=== PATIENT | female | born 1950 | race Caucasian/White ===

== ENCOUNTER → 2018-03-09 15:15 | Outpatient (CLI) | payer MEDICARE, SELFPAY ==
--- NOTE | 2018-03-09 15:27 | RAD_ITS ---
STUDY: X-RAY - RIGHT HAND REASON FOR EXAM: Female, 67 years old. Pain without known injury. History of rheumatoid arthritis. TECHNIQUE: 3 view(s) of the hand. COMPARISON: None. FINDINGS: Normal radiocarpal articulation. Normal distal radioulnar joint. There is diffuse demineralization of the carpal bones. Normal carpal articulations There is minimal degenerative arthrosis of the carpometacarpal (CMC) articulation of the thumb. Normal second through fifth carpometacarpal joints. Normal metacarpi. Normal metacarpophalangeal joint of the thumb. Normal interphalangeal joint of the thumb. Normal proximal and distal phalanges of the thumb. Normal metacarpophalangeal joints of the second through fifth fingers. Normal proximal and distal interphalangeal joints of the second through fifth fingers. Normal phalanges of the second through fifth fingers. There is soft tissue swelling over the dorsum of the metacarpophalangeal joints and along the palmar aspect of the hand. RAD/Hand Min 3 Views IMPRESSION: 1. Osteopenia and minimal degenerative changes. No fracture or dislocation. 2. Soft tissue prominence. Electronically Signed: Gamaliel Rodriguez DO at 20:26 EDT Tel [phone], Service support ,
--- NOTE | 2018-03-09 15:27 | RAD_ITS ---
STUDY: X-RAY - LEFT HAND REASON FOR EXAM: Female, 67 years old. History of rheumatoid arthritis. Pain without known injury. TECHNIQUE: 3 view(s) of the hand. COMPARISON: None. FINDINGS: Normal radiocarpal articulation. Normal distal radioulnar joint. There is diffuse demineralization of the carpal bones. Normal carpal articulations There is degenerative arthrosis of the carpometacarpal (CMC) articulation of the thumb. Normal second through fifth carpometacarpal joints. Normal metacarpi. Normal metacarpophalangeal joint of the thumb. There is degenerative arthrosis of the interphalangeal joint of the thumb with articular joint space narrowing. Normal proximal and distal phalanges of the thumb. Normal metacarpophalangeal joints of the second through fifth fingers. Normal proximal and distal interphalangeal joints of the second through fifth fingers. Normal phalanges of the second through fifth fingers. There is soft tissue prominence over the dorsum of the metacarpophalangeal joints. RAD/Hand Min 3 Views IMPRESSION: 1. Osteopenia and degenerative changes without acute fracture or dislocation. 2. Soft tissue prominence over the metacarpophalangeal joints. Electronically Signed: Gamaliel Rodriguez DO at 20:27 EDT Tel [phone], Service support ,
--- NOTE | 2018-03-09 15:27 | RAD_ITS ---
STUDY: X-RAY - RIGHT KNEE REASON FOR EXAM: Female, 67 years old. Bilateral knee pain without injury. History of rheumatoid arthritis. TECHNIQUE: 4 view(s) of the knee. COMPARISON: None. FINDINGS: Normal visualized distal femur. Normal visualized proximal tibia and fibula. Normal proximal tibiofibular articulation. There is no acute fracture, dislocation or destructive osseous pathology. There is moderate degenerative arthrosis of the medial femorotibial compartment with moderate joint space narrowing. There is mild degenerative arthrosis of the lateral femorotibial compartment. There is moderate degenerative arthrosis of the patellofemoral articulation. There is no demonstrated joint effusion. The soft tissue structures are unremarkable. RAD/Knee 4 or More Views IMPRESSION: Degenerative arthrosis. Electronically Signed: Gamaliel Rodriguez DO at 20:32 EDT Tel [phone], Service support ,
--- NOTE | 2018-03-09 15:27 | RAD_ITS ---
STUDY: X-RAY - LEFT KNEE REASON FOR EXAM: Female, 67 years old. Knee pain without injury. Rheumatoid arthritis. TECHNIQUE: 3 view(s) of the knee. COMPARISON: None. FINDINGS: Normal visualized distal femur. Normal visualized proximal tibia and fibula. Normal proximal tibiofibular articulation. There is no acute fracture, dislocation or destructive osseous pathology. There is mild degenerative arthrosis of the medial femorotibial compartment. Normal lateral femorotibial compartment. Normal patellofemoral articulation. There is no demonstrated joint effusion. The soft tissue structures are unremarkable. RAD/Knee 4 or More Views IMPRESSION: Degenerative arthrosis. Electronically Signed: Gamaliel Rodriguez DO at 20:31 EDT Tel [phone], Service support ,
[2018-03-09 15:39] LABS: Bacteria 0 SEEN /hpf (None Seen); Mucous, Urine 0 SEEN /hpf (<or=2+); Red Blood Cells-Urine 0 SEEN /hpf (0-5); Squamous Epithelial Cells - UA 0 SEEN /hpf (5-10); White Blood Cells 0 SEEN /hpf (0-5)
--- NOTE | 2018-03-09 16:00 | RAD_ITS ---
STUDY: X-RAY CHEST REASON FOR EXAM: Female, 67 years old. History of COPD. TECHNIQUE: PA and lateral views of the chest. COMPARISON: None. FINDINGS: The lungs are clear and expanded. There is no demonstrated pleural abnormality. Normal size heart. Normal mediastinum and salena. Normal visualized pulmonary arteries. Normal visualized aortic arch and descending thoracic aorta. There are diffuse degenerative changes of the visualized thoracic spine. Normal visualized ribs, clavicles, and shoulders. There is no demonstrated abnormality of the visualized soft tissue structures of the upper abdomen. RAD/Chest PA and Lateral IMPRESSION: No acute cardiopulmonary process. Electronically Signed: Emmanuelle Rodríguez MD at 19:35 EDT Tel , Service support ,
[2018-03-09 17:49] LABS: Absolute Lymphocyte Count 1.35 X10^3/ul (0.83-4.51); Absolute Neutrophil Count 4.6 X10^3/uL (2.0-7.7); Basophil# 0.04 X10^3/uL; Basophil% 0.6 % (0-1); Eosinophil# 0.28 X10^3/uL; Eosinophils% 4.1 % (0-5); Hematocrit 39.1 % (37-47); Hemoglobin 12.8 g/dl (12.0-15.0); Lymphocyte # 1.35 X10^3/ul (4.0); Lymphocyte % 19.5 % (19-41); Mean Corp Hgb Conc 32.7 g/gl (32-36); Mean Corpuscular Hgb 28.6 pg (27.0-32.0); Mean Corpuscular Volume 87.5 fL (81-99); Mean Platelet Vol. 10.8 fl (6.2-12.0); Monocyte# 0.58 X10^3/uL; Monocyte% 8.4 % (0-10); Neutrophil # 4.64 X10^3/uL (2.7-7.7); Neutrophil % 67.1 % (47-70); Platelet Count 212 K/mm3 (150-450); RBC Distribution Width CV 13.8 % (11.6-14.6); RBC Distribution Width SD 43.6 fl (35.1-43.9); Red Blood Count 4.47 M/mm3 (4.2-5.4); White Blood Count 6.9 K/mm3 (4.4-11.0)
[2018-03-09 17:53] LABS: POSITIVE COUNT NO; POSITIVE DIFFERENTIAL NO; POSITIVE MORPHOLOGY NO
[2018-03-09 18:02] LABS: Erythrocyte Sedimentation Rate 28 mm/hr (0-30)
[2018-03-09 19:13] LABS: ALB/GLOB Ratio 0.9 RATIO (0.9-2.4); AST(SGOT) 17 U/L (15-37); Alanine Aminotransfer ALT/SGPT 26 U/L (13-56); Albumin, Serum 3.5 g/dL (3.2-5.0); Alkaline Phosphatase 69 U/L (45-117); Anion Gap 6 (5-15); BUN 11 mg/dL (7-18); BUN/Creat Ratio 13.7 RATIO (10-20); Chloride 105 mmol/L (98-107); Cholesterol 169 mg/dL (200); EST Glomerular Filtration Rate 76 mL/min (>60); Est Glom Filt Rate - Afr Amer 92 mL/min (>60); Globulin 4.1 g/dL (2.2-4.2); Glucose 88 mg/dL (74-106); High Density Lipoprotein 39 mg/dL; Protein, Total 7.6 g/dL (6.4-8.2); Sodium Level 140 mmol/L (136-145); T4 Free Direct 1.16 ng/dL (0.76-1.46); Thyroid Stim Hormone (TSH) 3.41 uIU/mL (0.358-3.74); Triglycerides 192 mg/dL; Very Low Density Lipoprotein 38 mg/dL (5-40)
[2018-03-10 09:52] LABS: Vitamin B12 372 pg/mL (211-911)
[2018-03-10 11:33] LABS: Color, Urine Yellow (Yellow); Glucose, Dipstick Normal (Normal); Ketone-Dipstick Negative (Negative); Leukocyte Esterase-Dipstick Negative /ul (Negative); Nitrite-Dipstick Negative (Negative); Occult Blood-Urine Negative /ul (Negative); Protein-Dipstick Negative (Negative); Urine Bilirubin Dipstick Negative (Negative); Urine Clarity Clear (Clear); Urine Urobilinogen Normal (Normal)
[2018-03-14 08:25] LABS: Anti-Thyroglobulin AB < 1.0 IU/mL (0.0-0.9); Thyroglobulin, Serum Qt. 22.4 ng/mL (1.5-38.5); Thyroid Peroxidase AB 14 IU/mL (0-34); Vitamin B1, Thiamine 59.3 nmol/L (66.5-200.0)
[2018-03-14 08:55] LABS: ANTINUCLEAR ANTIBODIES DIRECT Negative (Negative)
== END ==
PROVIDERS: Family Provider Family Medicine; PCP Family Medicine; Visit Provider Family Medicine
DX: M06.9 Rheumatoid arthritis, unspecified (principal); I10 Essential (primary) hypertension; G62.9 Polyneuropathy, unspecified; E03.9 Hypothyroidism, unspecified
CPT/HCPCS: 36415; 71046; 73130; 73564; 80053; 80061; 81001; 82607; 84425; 84432; 84439; 84443; 85025; 85652; 86038; 86376; 86431; 86800

== ENCOUNTER → 2018-04-14 08:16 | Outpatient (CLI) | payer MEDICARE, SELFPAY ==
--- NOTE | 2018-04-17 10:07 | PFT ---
INTRODUCTION: The patient is a 67-year-old female that presents for pulmonary function testing secondary to a diagnosis of COPD. Respiratory therapy reports good patient effort. Bronchodilators were used during testing. INTERPRETATION: Forced expiration spirometry demonstrates no evidence of a large airways obstructive ventilatory defect. There was no significant response to aerosolized bronchodilators. Spirograms are of good quality and plateau normally. The respiratory flow volume loop appears normal. Body plethysmography was performed and reveals a decreased TLC to 2.7 L, 74% predicted, indicative of a mild restrictive ventilatory defect. The remainder of the lung volumes are symmetrically reduced. Diffusing capacity by single breath CO is moderately reduced at 58% of predicted. IMPRESSION: These pulmonary function studies demonstrate the presence of a mild restrictive ventilatory defect with a proportional reduction in diffusing capacity. There are no previous pulmonary function studies available for comparison.
== END ==
LOC: PSN 08:17
PROVIDERS: Family Provider Family Medicine; PCP Family Medicine; Visit Provider Family Medicine
DX: J44.9 Chronic obstructive pulmonary disease, unspecified (principal)
CPT/HCPCS: 94060; 94726; 94729

== ENCOUNTER → 2018-06-20 14:01 | Outpatient (CLI) | payer MEDICARE, SELFPAY ==
--- NOTE | 2018-06-20 14:10 | ECHOCS_ITS ---
Reason For Study: DYSPNEA Procedure This was a 2D Doppler, Color Flow transthoracic echocardiogram. The study was technically difficult. Exam performed in department. Left Ventricle Normal LV size. The estimated ejection fraction is 55 %. No regional wall motion abnormalities noted. Right Ventricle Normal RV size. Normal systolic function. Atria The left atrium is mildly enlarged. Normal right atrium. Mitral Valve Normal mitral valve. Tricuspid Valve The tricuspid valve is not well visualized. Aortic Valve The aortic valve is not well visualized. Great Vessels Normal aortic root. Pericardium/Pleural No pericardial effusion. Medication 22 gauge I.V. with prn adaptor inserted into left arm. Diluted definity 4.5ml given slow IV push to enhance endocardial definition. MMode/2D Measurements & Calculations LVIDd: 4.2 cm IVSd: 1.1 cm LVOT diam: 2.0 cm LVIDs: 3.0 cm LVPWd: 1.2 cm LVOT area: 3.3 cm2 FS: 27.0 % Ao root diam: 3.2 cm LAV(MOD-bp): 57.5 ml LVAd ap4: 32.9 cm2 LA dimension: 4.6 cm LAV(MOD-bp) Indexed: 32.6 ml/m2 EDV(MOD-sp4): 118.6 ml LAV(MOD-sp2): 49.6 ml EDV(sp4-el): 127.5 ml LAV(MOD-sp4): 58.3 ml LVAs ap4: 21.2 cm2 ESV(MOD-sp4): 53.6 ml ESV(sp4-el): 59.4 ml EF(MOD-sp4): 54.8 % EF(sp4-el): 53.4 % SV(MOD-sp4): 65.1 ml SV(sp4-el): 68.2 ml LA A4 area: 21.4 cm2 LA dimension(2D): 4.6 cm Time Measurements MV dec time: 0.18 sec Doppler Measurements & Calculations MV E max venkata: 92.2 cm/sec Lat Peak E' Venkata: 13.3 cm/sec Med Peak E' Venkata: 6.6 cm/sec MV A max venkata: 83.5 cm/sec E/E' lat: 7.0 E/E' med: 14.0 MV E/A: 1.1 Ao V2 max: 143.4 cm/sec LV V1 max: 99.2 cm/sec PA V2 max: 97.1 cm/sec Ao max P.2 mmHg LV V1 max P.9 mmHg ANDREW(V,D): 2.3 cm2 TR max venkata: 287.7 cm/sec TR max P.3 mmHg Interpretation Summary Normal LV size. The estimated ejection fraction is 55 %. No regional wall motion abnormalities noted. Contrast injection was performed. The study was technically limited. The study was technically difficult. Ordering Physician: Adilson Field Referring Physician: Adilson Field Performed By: Tasha Lopez RDCS
--- NOTE | 2018-06-20 15:28 | RAD_ITS ---
STUDY: X-RAY CHEST REASON FOR EXAM: Female, 67 years old. Increased SOB. TECHNIQUE: PA and lateral views. COMPARISON: 03/09/2018. FINDINGS: The lungs are clear and expanded. There is no demonstrated pleural abnormality. There is mild cardiac enlargement. Normal mediastinum and salena. Normal visualized pulmonary arteries. Normal visualized aortic arch and descending thoracic aorta. Normal visualized thoracic spine. Normal visualized ribs, clavicles, and shoulders. There is no demonstrated abnormality of the visualized soft tissue structures of the upper abdomen. RAD/Chest PA and Lateral IMPRESSION: Normal x-ray examination of the chest. Electronically Signed: Mili Bueno MD at 0:00 EST Tel , Service support ,
== END ==
PROVIDERS: Family Provider Family Medicine; PCP Family Medicine; Referring Provider Internal Medicine Pulmonary Disease; Visit Provider Internal Medicine Pulmonary Disease
DX: R06.00 Dyspnea, unspecified (principal)
CPT/HCPCS: 71046; 93306; Q9957; A4216; C8929

== ENCOUNTER → 2018-06-23 12:06 | Outpatient (CLI) | payer MEDICARE, SELFPAY ==
[2018-06-23 14:21] LABS: Absolute Lymphocyte Count 1.22 X10^3/ul (0.83-4.51); Absolute Neutrophil Count 5.6 X10^3/uL (2.0-7.7); Basophil# 0.04 X10^3/uL; Basophil% 0.5 % (0-1); Eosinophil# 0.29 X10^3/uL; Eosinophils% 3.7 % (0-5); Hematocrit 40.9 % (37-47); Hemoglobin 13.2 g/dl (12.0-15.0); Lymphocyte # 1.22 X10^3/ul (4.0); Lymphocyte % 15.6 % (19-41); Mean Corp Hgb Conc 32.3 g/gl (32-36); Mean Corpuscular Hgb 28.8 pg (27.0-32.0); Mean Corpuscular Volume 89.3 fL (81-99); Mean Platelet Vol. 11.1 fl (6.2-12.0); Monocyte# 0.67 X10^3/uL; Monocyte% 8.6 % (0-10); Neutrophil # 5.59 X10^3/uL (2.7-7.7); Neutrophil % 71.3 % (47-70); Platelet Count 201 K/mm3 (150-450); RBC Distribution Width CV 14.5 % (11.6-14.6); RBC Distribution Width SD 47.1 fl (35.1-43.9); Red Blood Count 4.58 M/mm3 (4.2-5.4); White Blood Count 7.8 K/mm3 (4.4-11.0)
[2018-06-23 14:26] LABS: POSITIVE COUNT NO; POSITIVE DIFFERENTIAL NO; POSITIVE MORPHOLOGY NO
[2018-06-23 14:36] LABS: ALB/GLOB Ratio 0.9 RATIO (0.9-2.4); AST(SGOT) 16 U/L (15-37); Alanine Aminotransfer ALT/SGPT 25 U/L (13-56); Albumin, Serum 3.3 g/dL (3.2-5.0); Alkaline Phosphatase 70 U/L (45-117); Anion Gap 6 (5-15); BUN 10 mg/dL (7-18); BUN/Creat Ratio 12.6 RATIO (10-20); Calcium,Total 9.1 mg/dL (8.5-10.1); Chloride 103 mmol/L (98-107); Cholesterol 195 mg/dL (200); Creatinine, Serum 0.79 mg/dL (0.55-1.02); EST Glomerular Filtration Rate 77 mL/min (>60); Est Glom Filt Rate - Afr Amer 93 mL/min (>60); Globulin 3.8 g/dL (2.2-4.2); Glucose 74 mg/dL (74-106); High Density Lipoprotein 43 mg/dL; Protein, Total 7.1 g/dL (6.4-8.2); Sodium Level 139 mmol/L (136-145); Thyroid Stim Hormone (TSH) 0.95 uIU/mL (0.358-3.74); Triglycerides 166 mg/dL; Very Low Density Lipoprotein 33 mg/dL (5-40)
[2018-06-29 08:11] LABS: Vitamin B1, Thiamine 312.2 nmol/L (66.5-200.0)
== END ==
PROVIDERS: Family Provider Family Medicine; PCP Family Medicine; Referring Provider Family Medicine; Visit Provider Family Medicine
DX: I10 Essential (primary) hypertension (principal)
CPT/HCPCS: 36415; 80053; 80061; 84425; 84443; 85025

== ENCOUNTER 2020-10-23 08:51 | Outpatient (RCR) | payer MEDICARE, SELFPAY ==
[2020-10-23] MEDS: COVID-19 VACC, MRNA(PFIZER)/PF 30 MCG/0.3 ML SYRINGE IM (14:21)
[2020-11-13] MEDS: COVID-19 VACC, MRNA(PFIZER)/PF 30 MCG/0.3 ML SYRINGE IM (14:24)
== END 2021-01-20 23:59 ==
LOC: IMMUN 08:51
PROVIDERS: PCP Student in an Organized Health Care Education/Training Program; Visit Provider Family Medicine
DX: Z23 Encounter for immunization (principal)
CPT/HCPCS: 0001A; 0002A; 91300

== ENCOUNTER → 2022-08-30 | Outpatient (CLI) | payer MEDICARE, SELFPAY | END | disposition home or self-care (01) | LOC: SL 20:55 | PROVIDERS: PCP Student in an Organized Health Care Education/Training Program; Visit Provider Student in an Organized Health Care Education/Training Program | DX: G47.33 Obstructive sleep apnea (adult) (pediatric) (principal) | CPT/HCPCS: 95811 ==

== ENCOUNTER → 2022-09-21 | Outpatient (CLI) | payer MEDICARE, SELFPAY | END | disposition home or self-care (01) | LOC: SL 13:47 | PROVIDERS: PCP Student in an Organized Health Care Education/Training Program; Visit Provider Student in an Organized Health Care Education/Training Program | DX: Z00.00 Encounter for general adult medical examination without abnormal findings (principal) ==

== ENCOUNTER → 2025-05-27 | Outpatient (CLI) | payer MEDICARE, SELFPAY ==
[2025-05-27 17:51] LABS: Hematocrit 38.2 % (37-47); Hemoglobin 12.3 g/dL (12.0-15.0); Mean Corp Hgb Conc 32.2 g/dL (32-36); Mean Corpuscular Volume 92.5 fL (81-99); Mean Platelet Vol. 12.1 fl (6.2-12.0); Platelet Count 158 K/mm3 (150-450); RBC Distribution Width CV 14.6 % (11.6-14.6); RBC Distribution Width SD 49.1 fl (35.1-43.9); Red Blood Count 4.13 M/mm3 (4.2-5.4); White Blood Count 8.0 K/mm3 (4.4-11.0)
[2025-05-27 18:08] LABS: AST(SGOT) 22 U/L (<=31); Alanine Aminotransfer ALT/SGPT 35 U/L (<=34); Albumin, Serum 3.7 g/dL (3.4-4.8); Alkaline Phosphatase 62 U/L (35-104); Bilirubin, Direct 0.17 mg/dL (0.00-0.30); Globulin 2.8 g/dL (2.2-4.2); Pro- Brain NATRIURETIC PEPTIDE 86 pg/mL (<=900)
[2025-05-28 11:59] LABS: Anion Gap 12 (5-15); BUN 21 mg/dL (4-19); BUN/Creat Ratio 17.7 RATIO (10-20); Calcium,Total 9.4 mg/dL (7.6-11.0); Carbon Dioxide 28.5 mmol/L (21.0-32.0); Chloride 99 mmol/L (98-108); Glucose 161 mg/dL (70-99); Potassium 3.8 mmol/L (3.3-5.1)
== END | disposition home or self-care (01) ==
LOC: HHLAB 15:59
PROVIDERS: PCP Student in an Organized Health Care Education/Training Program; Visit Provider Student in an Organized Health Care Education/Training Program
DX: N17.0 Acute kidney failure with tubular necrosis (principal)
CPT/HCPCS: 80048; 80076; 83880; 84100; 85027

== ENCOUNTER 2025-06-15 11:47 | Inpatient (IN) | payer MEDICARE, SELFPAY ==
[2025-06-15] VITALS (48 sets, daily range): BP systolic 50–137; BP diastolic 20–120; PULSE 54–120; RESP 12–34; TEMP 35.6–36.4; O2SAT 68–100; BMI 56.6
--- NOTE | 2025-06-15 12:07 | ED.VIS.DYS ---
HPI <Dr. Mike Tamez MD - Last Filed: 06/15/25 16:32> History of Present Illness Chief Complaint: Shortness of Breath Informant: patient Onset/Context/Timing Onset: Today and Yesterday Context: gradual Timing: Continuous Current Severity: Moderate Worsened by: Nothing Relieved by: Nothing Associated Symptoms cough Chest Pain: Positive for None Narrative Narrative: 74-year-old female history of recent admission to [facility] for pneumonia, CHF, COPD. Also has a history of A-fib on Eliquis and has a DVT in her leg. States that she was just discharged in the hospital she said we were told by home health care might have been this past Tuesday. She has become more short of breath. She is chronically on 2 L at home has been increased to 3 and she is post to wear it all the time and states she primarily wears it at night. She denies any chest pain. She denies any hemoptysis. She does have a nonproductive cough. PE Risk Factors: Positive for Prior DVT or PE and Recent immobilization; Negative for Cancer, OCP + Smoking + > 35, Recent surgery or Recent travel Prior similar symptoms: Yes Recent Illness/Hospitalization: Yes [facility] <Dr. Mike Tamez MD - Last Filed: 06/15/25 16:32> [facility] Medical History Blood clot in leg COPD (chronic obstructive pulmonary disease) Afib Home Medications ?Medication ?Instructions ?Recorded ?Last Taken ?Type BIPAP -Bilevel Positive Airway Pulmonary Information 06/15/25 06/15/25 History Pressure ([facility] INFORMATIONAL USE ONLY) OXYGEN - Supplemental ([facility] Pulmonary Information 06/15/25 06/15/25 History INFORMATIONAL USE ONLY) albuterol sulfate 2.5 mg/3 mL mg COPD 06/15/25 Unknown History (0.083 %) solution for nebulization apixaban 5 mg tablet (Eliquis) 5 mg PO BID AFIB 06/15/25 Unknown History aspirin 81 mg tablet,delayed 81 mg PO DAILY HEART 06/15/25 Unknown History release (Adult Aspirin Regimen) bumetanide 1 mg tablet 1 mg PO DAILY DIURETIC 06/15/25 Unknown History cyanocobalamin (vitamin B-12) 1,000 mcg sublingual DAILY 06/15/25 Unknown History 1,000 mcg sublingual tablet SUPPLEMENT empagliflozin 10 mg tablet 10 mg PO DAILY WATER RETENTION 06/15/25 Unknown History (Jardiance) fluoxetine 40 mg capsule 40 mg PO DAILY MOOD 06/15/25 Unknown History hydrocodone-acetaminophen 5-325mg 1 tab PO TID PAIN 06/15/25 06/15/25 History 5mg-325mg hydroxyzine HCl 25 mg tablet 25 mg PO BID ITCHING 06/15/25 Unknown History levothyroxine 137 mcg tablet 137 mcg PO DAILY HYPOTHYROID 06/15/25 Unknown History (Synthroid) losartan 25 mg tablet 25 mg PO DAILY HYPERTENSIO 06/15/25 Unknown History metoprolol succinate 100 mg 12.5 mg PO BID AFIB 06/15/25 Unknown History tablet,extended release 24 hr pramipexole 0.125 mg tablet 0.125 mg PO TID TREMORS 06/15/25 Unknown History prednisone 5 mg tablet 5 mg PO DAILY rHUMATOID ARTHRITIS 06/15/25 Unknown History pregabalin 75 mg capsule 75 mg PO TID NEUROPATHY 06/15/25 Unknown History rosuvastatin 10 mg tablet 10 mg PO QHS HYPERLIPIDEMIA 06/15/25 Unknown History trazodone 100 mg tablet 100 mg PO QHS SLEEP 06/15/25 Unknown History Allergy/AdvReac Type Severity Reaction Status Date / Time amoxicillin AdvReac Nausea Verified 06/15/25 11:49 tramadol AdvReac Nausea Verified 06/15/25 11:49 Social History Smoking Status: Heavy Smoker (>10/day) ROS <Dr. Mike Tamez MD - Last Filed: 06/15/25 16:32> ROS ED ROS Narrative Cough. Shortness of breath. Constitutional Constitutional ED: Denies chills or fever(s) Eyes Eyes: Denies blurry vision ENT ENT ED: Denies ear pain Respiratory/Chest Respiratory/Chest: Reports cough and dyspnea Gastrointestinal Gastrointestinal: Denies abdominal pain Genitourinary Genitourinary ED: Denies dysuria or hematuria Musculoskeletal Musculoskeletal: Denies arthralgias Integumentary Denies abscess Neurologic Neurologic: Denies headache(s) Psychiatric Psychiatric: Denies anxiety or depression Endocrine Endocrinology: Denies cold intolerance, heat intolerance or polydipsia Hematologic/Lymphatic Hematologic/Lymphatic: Denies easy bleeding, easy bruising or lymphadenopathy Allergic/Immunologic Allergic/Immunologic ED: Denies mouth swelling or urticaria EXAM <Dr. Mike Tamez MD - Last Filed: 06/15/25 16:32> Physical Exam Narrative Exam Narrative: 74-year-old female sitting upright in bed. Initial blood pressure 92/60. Temperature 97.4. Respiratory rate 22. Pulse ox is 95% on 4 L she is not hypoxic on oxygen. H EENT exam pupils are round react light. Extra motions are intact. Neck nontender no JVD. Back nontender. Lungs coarse breath sounds. Prolonged expiratory phase. No rhonchi. No rales appreciated. No significant wheezing. Few scattered. Heart regular rhythm rate about 75 no murmur. Chest wall ribs nontender. Abdomen soft nontender. Moving all 4 extremities. She does have 1+ pitting edema both lower extremities. Calves nontender. Neurologically she is awake and alert. Answering questions following commands. Const Vital Signs: 06/15/25 11:49 06/15/25 12:03 06/15/25 12:04 Temperature 97.4 F L Temperature Source Oral Pulse Rate 76 Respiratory Rate 22 H Respiratory Effort Short of Breath Labored Respiratory Depth Shallow Respiratory Pattern Tachypnea Blood Pressure 92/60 Blood Pressure Mean 70 Pulse Ox 95 94 Oxygen Delivery Method Room Air Nasal Cannula Room Air Oxygen Flow Rate (L/min) 4 3 3 Fraction of Inspired Oxygen (FIO2) 06/15/25 12:47 06/15/25 12:47 06/15/25 12:47 Temperature Temperature Source Pulse Rate 74 80 Respiratory Rate 20 H 25 H Respiratory Effort Respiratory Depth Respiratory Pattern Normal Blood Pressure 91/73 Blood Pressure Mean 79 Pulse Ox 99 99 Oxygen Delivery Method Nasal Cannula Nasal Cannula Oxygen Flow Rate (L/min) 3 4 Fraction of Inspired Oxygen (FIO2) 06/15/25 12:55 06/15/25 13:00 06/15/25 13:15 Temperature 97.5 F L Temperature Source Oral Pulse Rate 74 Respiratory Rate 23 H Respiratory Effort Respiratory Depth Respiratory Pattern Blood Pressure 85/49 L 85/49 L Blood Pressure Mean 61 62 Pulse Ox 94 Oxygen Delivery Method Nasal Cannula Nasal Cannula Oxygen Flow Rate (L/min) 3 2 Fraction of Inspired Oxygen (FIO2) 06/15/25 13:22 06/15/25 13:30 06/15/25 13:45 Temperature Temperature Source Pulse Rate 80 73 107 H Respiratory Rate 22 H 22 H 22 H Respiratory Effort Respiratory Depth Respiratory Pattern Blood Pressure 74/38 L 98/66 95/63 Blood Pressure Mean 49 75 68 Pulse Ox Oxygen Delivery Method Oxygen Flow Rate (L/min) Fraction of Inspired Oxygen (FIO2) 06/15/25 14:00 06/15/25 14:00 06/15/25 14:15 Temperature Temperature Source Pulse Rate 102 H 110 H 108 H Respiratory Rate 24 H 19 H 22 H Respiratory Effort Respiratory Depth Respiratory Pattern Blood Pressure 107/84 H 107/84 H 94/62 Blood Pressure Mean 91 91 73 Pulse Ox 94 Oxygen Delivery Method Oxygen Flow Rate (L/min) Fraction of Inspired Oxygen (FIO2) 06/15/25 14:33 06/15/25 14:38 06/15/25 14:45 Temperature Temperature Source Pulse Rate 109 H 113 H Respiratory Rate 24 H 22 H Respiratory Effort Respiratory Depth Respiratory Pattern Blood Pressure 63/46 L 63/45 L 63/45 L Blood Pressure Mean 54 52 51 Pulse Ox Oxygen Delivery Method Oxygen Flow Rate (L/min) Fraction of Inspired Oxygen (FIO2) 06/15/25 14:45 06/15/25 14:50 06/15/25 14:55 Temperature Temperature Source Pulse Rate 104 H 104 H 97 Respiratory Rate 25 H 23 H 22 H Respiratory Effort Respiratory Depth Respiratory Pattern Blood Pressure 51/20 L 75/31 L 50/27 L Blood Pressure Mean 27 44 32 Pulse Ox 94 Oxygen Delivery Method Oxygen Flow Rate (L/min) Fraction of Inspired Oxygen (FIO2) 06/15/25 15:01 06/15/25 15:15 06/15/25 15:30 Temperature Temperature Source Pulse Rate 109 H Respiratory Rate 23 H Respiratory Effort Respiratory Depth Respiratory Pattern Blood Pressure 58/37 L Blood Pressure Mean 41 Pulse Ox 96 98 Oxygen Delivery Method Oxygen Flow Rate (L/min) Fraction of Inspired Oxygen (FIO2) 06/15/25 15:30 06/15/25 15:36 06/15/25 15:45 Temperature Temperature Source Pulse Rate 67 Respiratory Rate 28 H Respiratory Effort Respiratory Depth Respiratory Pattern Tachypnea Blood Pressure 53/31 L Blood Pressure Mean 40 Pulse Ox 96 99 99 Oxygen Delivery Method Oxygen Flow Rate (L/min) Fraction of Inspired Oxygen (FIO2) 45 06/15/25 15:55 06/15/25 16:00 06/15/25 16:00 Temperature Temperature Source Pulse Rate 54 L 59 L 59 L Respiratory Rate 17 23 H 23 H Respiratory Effort Respiratory Depth Respiratory Pattern Blood Pressure 79/64 L 76/48 L Blood Pressure Mean 70 53 Pulse Ox Oxygen Delivery Method Oxygen Flow Rate (L/min) Fraction of Inspired Oxygen (FIO2) 06/15/25 16:05 06/15/25 16:12 06/15/25 16:15 Temperature Temperature Source Pulse Rate 58 L 56 L 62 Respiratory Rate 23 H 21 H 18 Respiratory Effort Respiratory Depth Respiratory Pattern Blood Pressure 56/37 L 102/40 L Blood Pressure Mean 43 57 Pulse Ox 96 87 Oxygen Delivery Method Bi-pap Bi-pap Bi-pap Oxygen Flow Rate (L/min) Fraction of Inspired Oxygen (FIO2) 06/15/25 16:17 06/15/25 16:20 06/15/25 16:27 Temperature 97.5 F L Temperature Source Pulse Rate 62 65 65 Respiratory Rate 25 H 19 H 19 H Respiratory Effort Respiratory Depth Respiratory Pattern Blood Pressure 68/56 L 99/58 L 99/58 L Blood Pressure Mean 62 69 71 Pulse Ox 89 100 Oxygen Delivery Method Bi-pap Bi-pap Oxygen Flow Rate (L/min) Fraction of Inspired Oxygen (FIO2) 06/15/25 16:30 06/15/25 16:40 Temperature Temperature Source Pulse Rate 67 63 Respiratory Rate 34 H 24 H Respiratory Effort Respiratory Depth Respiratory Pattern Blood Pressure 62/34 L Blood Pressure Mean 45 Pulse Ox 95 100 Oxygen Delivery Method Oxygen Flow Rate (L/min) Fraction of Inspired Oxygen (FIO2) <Dr. Kendall Dumont MD - Last Filed: 06/15/25 18:43> Physical Exam Const Vital Signs: 06/15/25 11:49 06/15/25 12:03 06/15/25 12:04 Temperature 97.4 F L Temperature Source Oral Pulse Rate 76 Respiratory Rate 22 H Respiratory Effort Short of Breath Labored Respiratory Depth Shallow Respiratory Pattern Tachypnea Blood Pressure 92/60 Blood Pressure Mean 70 Pulse Ox 95 94 Oxygen Delivery Method Room Air Nasal Cannula Room Air Oxygen Flow Rate (L/min) 4 3 3 Fraction of Inspired Oxygen (FIO2) 06/15/25 12:47 06/15/25 12:47 06/15/25 12:47 Temperature Temperature Source Pulse Rate 74 80 Respiratory Rate 20 H 25 H Respiratory Effort Respiratory Depth Respiratory Pattern Normal Blood Pressure 91/73 Blood Pressure Mean 79 Pulse Ox 99 99 Oxygen Delivery Method Nasal Cannula Nasal Cannula Oxygen Flow Rate (L/min) 3 4 Fraction of Inspired Oxygen (FIO2) 06/15/25 12:55 06/15/25 13:00 06/15/25 13:15 Temperature 97.5 F L Temperature Source Oral Pulse Rate 74 Respiratory Rate 23 H Respiratory Effort Respiratory Depth Respiratory Pattern Blood Pressure 85/49 L 85/49 L Blood Pressure Mean 61 62 Pulse Ox 94 Oxygen Delivery Method Nasal Cannula Nasal Cannula Oxygen Flow Rate (L/min) 3 2 Fraction of Inspired Oxygen (FIO2) 06/15/25 13:22 06/15/25 13:30 06/15/25 13:45 Temperature Temperature Source Pulse Rate 80 73 107 H Respiratory Rate 22 H 22 H 22 H Respiratory Effort Respiratory Depth Respiratory Pattern Blood Pressure 74/38 L 98/66 95/63 Blood Pressure Mean 49 75 68 Pulse Ox Oxygen Delivery Method Oxygen Flow Rate (L/min) Fraction of Inspired Oxygen (FIO2) 06/15/25 14:00 06/15/25 14:00 06/15/25 14:15 Temperature Temperature Source Pulse Rate 102 H 110 H 108 H Respiratory Rate 24 H 19 H 22 H Respiratory Effort Respiratory Depth Respiratory Pattern Blood Pressure 107/84 H 107/84 H 94/62 Blood Pressure Mean 91 91 73 Pulse Ox 94 Oxygen Delivery Method Oxygen Flow Rate (L/min) Fraction of Inspired Oxygen (FIO2) 06/15/25 14:33 06/15/25 14:38 06/15/25 14:45 Temperature Temperature Source Pulse Rate 109 H 113 H Respiratory Rate 24 H 22 H Respiratory Effort Respiratory Depth Respiratory Pattern Blood Pressure 63/46 L 63/45 L 63/45 L Blood Pressure Mean 54 52 51 Pulse Ox Oxygen Delivery Method Oxygen Flow Rate (L/min) Fraction of Inspired Oxygen (FIO2) 06/15/25 14:45 06/15/25 14:50 06/15/25 14:55 Temperature Temperature Source Pulse Rate 104 H 104 H 97 Respiratory Rate 25 H 23 H 22 H Respiratory Effort Respiratory Depth Respiratory Pattern Blood Pressure 51/20 L 75/31 L 50/27 L Blood Pressure Mean 27 44 32 Pulse Ox 94 Oxygen Delivery Method Oxygen Flow Rate (L/min) Fraction of Inspired Oxygen (FIO2) 06/15/25 15:01 06/15/25 15:15 06/15/25 15:30 Temperature Temperature Source Pulse Rate 109 H Respiratory Rate 23 H Respiratory Effort Respiratory Depth Respiratory Pattern Blood Pressure 58/37 L Blood Pressure Mean 41 Pulse Ox 96 98 Oxygen Delivery Method Oxygen Flow Rate (L/min) Fraction of Inspired Oxygen (FIO2) 06/15/25 15:30 06/15/25 15:36 06/15/25 15:45 Temperature Temperature Source Pulse Rate 67 Respiratory Rate 28 H Respiratory Effort Respiratory Depth Respiratory Pattern Tachypnea Blood Pressure 53/31 L Blood Pressure Mean 40 Pulse Ox 96 99 99 Oxygen Delivery Method Oxygen Flow Rate (L/min) Fraction of Inspired Oxygen (FIO2) 45 06/15/25 15:55 06/15/25 16:00 06/15/25 16:00 Temperature Temperature Source Pulse Rate 54 L 59 L 59 L Respiratory Rate 17 23 H 23 H Respiratory Effort Respiratory Depth Respiratory Pattern Blood Pressure 79/64 L 76/48 L Blood Pressure Mean 70 53 Pulse Ox Oxygen Delivery Method Oxygen Flow Rate (L/min) Fraction of Inspired Oxygen (FIO2) 06/15/25 16:05 06/15/25 16:12 06/15/25 16:15 Temperature Temperature Source Pulse Rate 58 L 56 L 62 Respiratory Rate 23 H 21 H 18 Respiratory Effort Respiratory Depth Respiratory Pattern Blood Pressure 56/37 L 102/40 L Blood Pressure Mean 43 57 Pulse Ox 96 87 Oxygen Delivery Method Bi-pap Bi-pap Bi-pap Oxygen Flow Rate (L/min) Fraction of Inspired Oxygen (FIO2) 06/15/25 16:17 06/15/25 16:20 06/15/25 16:27 Temperature 97.5 F L Temperature Source Pulse Rate 62 65 65 Respiratory Rate 25 H 19 H 19 H Respiratory Effort Respiratory Depth Respiratory Pattern Blood Pressure 68/56 L 99/58 L 99/58 L Blood Pressure Mean 62 69 71 Pulse Ox 89 100 Oxygen Delivery Method Bi-pap Bi-pap Oxygen Flow Rate (L/min) Fraction of Inspired Oxygen (FIO2) 06/15/25 16:30 06/15/25 16:40 Temperature Temperature Source Pulse Rate 67 63 Respiratory Rate 34 H 24 H Respiratory Effort Respiratory Depth Respiratory Pattern Blood Pressure 62/34 L Blood Pressure Mean 45 Pulse Ox 95 100 Oxygen Delivery Method Oxygen Flow Rate (L/min) Fraction of Inspired Oxygen (FIO2) Sepsis Attestation <Dr. Kendall Dumont MD - Last Filed: 06/15/25 18:43> Sepsis Alert: Yes Sepsis Attestation: Agree w/Sepsis Date exam was performed: 06/15/25 Time exam was performed: 12:55 Possible Source of Sepsis: Pulmonary Sepsis Organ Dysfunction Criteria Present: SBP < 90 mmHg or MAP < 65 mmHg, Acute Respiratory Failure (New need for BiPAP/CPAP or MV), Creatinine > 2.0 mg/dL and Lactic Acid > 2 mmol/L Fluid Resuscitation Fluid resuscitation indicated?: Yes Amount of fluid ordered: 3,000 Reason for lesser fluid bolus:: Concern for fluid overload and Heart failure Sepsis Note Date exam was performed: 06/15/25 Time exam was performed: 15:15 Sepsis Attestation: Sepsis re-evaluation was performed Response to fluids: Non Fluid responsive hypotension and Vasopressors started (Started initially on peripheral Levophed. Converted to Central after right IJ was placed. Patient's blood pressure has not improved significantly. Vahid-Synephrine was added at 1650.) [facility] <Dr. Mike Tamez MD - Last Filed: 06/15/25 16:32> [facility] Narrative Medical decision making narrative: 74-year-old with dyspnea with a history of COPD, recent pneumonia treated with antibiotics, CHF and on a blood thinner due to A-fib and known DVT. She undergo a cardiac/respiratory workup. Received DuoNeb aerosol. Patient's were made sepsis protocol due to her hypotension and chest x-ray. On repeat examination doing well at 1:25 PM she is awake. She is alert. She is sitting up. She is tolerating well. I discussed with both her and her daughter diagnosis currently. They state her blood pressure has been running low like 90s to 100 at home. She will be given a liter normal saline. She will be started on Rocephin and Zithromax for the suspected pneumonia on chest x-ray. Cultures will be obtained additional labs and she will be admitted to the hospitalist. Patient is being fluid resuscitated due to her hypotension and left lower lobe pneumonia with concern for sepsis and septic shock. She received a liter. She will get a second liter for the third. Then we will determine further and continue IV fluids due to her history of CHF or manage her pressure with the Levophed that she is currently on and is also improving. Chest x-ray post central line placement of the right IJ shows no pneumothorax. Portable film. History & Record Review Discussion w/independent historian: Patient Additional record(s) reviewed:: Prior inpatient record, Prior outpatient record, Prior ED visit and Prior labs Lab Data Attestation: I reviewed the patient's lab results. Lab results narrative: CBC shows an elevated white count of 16.8. H&H of 10.3 and 32. Platelets 377. 81% neutrophils. Chemistries show a sodium 137. Gap 14. BUN and creatinine of 31 and 2.0 consistent with acute kidney injury most recent creatinine was around 1. Glucose 183. Liver enzymes show an elevated AST and ALT of 39 and 52. Troponin 48. 2-hour troponin 45. BNP 1200. Lactic acid elevated 2.3. PT/INR 27 2.5. PTT 32. UA is negative. No white or red cells. No bacteria. No nitrites. Labs: Laboratory Results - last 24 hr 06/15/25 06/15/25 06/15/25 12:02 13:17 13:20 WBC 16.8 H RBC 3.54 L Hgb 10.3 L Hct 32.9 L MCV 92.9 MCH 29.1 MCHC 31.3 L RDW Std Deviation 48.7 H RDW Coeff of Airam 14.3 Plt Count 377 MPV 11.2 Immature Gran % (Auto) 2.100 H Neut % (Auto) 81.9 H Lymph % (Auto) 6.3 L [place] % (Auto) 7.6 Eos % (Auto) 1.3 Baso % (Auto) 0.8 Absolute Neuts (auto) 13.7 H Absolute Lymphs (auto) 1.06 Nucleated RBC % 0.1 PT 27.7 H INR 2.5 APTT 32.9 Sodium 137 Potassium 4.9 Chloride 99 Carbon Dioxide 24.2 Anion Gap 14 BUN 31 H Creatinine 2.08 H Estim Creat Clear Calc 28.44 L Est GFR (MDRD) Non-Af 25 L BUN/Creatinine Ratio 15.0 Glucose 183 H Lactic Acid 2.3 H* Calcium 9.5 Total Bilirubin 0.44 Direct Bilirubin 0.14 AST 39 H ALT 52 H Alkaline Phosphatase 59 Troponin T High Sens 48 H Troponin T Hi Sens 2 Hr NT pro BNP II 1200 H Total Protein 6.5 Albumin 2.8 L Globulin 3.6 Urine Color Urine Clarity Urine pH Ur Specific [place] Urine Protein Urine Glucose (UA) Urine Ketones Urine Occult Blood Urine Nitrite Urine Bilirubin Urine Urobilinogen Ur Leukocyte Esterase Urine RBC Urine WBC Ur Squamous Epith Cells Urine Bacteria Hyaline Casts Urine Mucus 11/01/25 11/01/25 14:34 14:52 WBC RBC Hgb Hct MCV MCH MCHC RDW Std Deviation RDW Coeff of Airam Plt Count MPV Immature Gran % (Auto) Neut % (Auto) Lymph % (Auto) [place] % (Auto) Eos % (Auto) Baso % (Auto) Absolute Neuts (auto) Absolute Lymphs (auto) Nucleated RBC % PT INR APTT Sodium Potassium Chloride Carbon Dioxide Anion Gap BUN Creatinine Estim Creat Clear Calc Est GFR (MDRD) Non-Af BUN/Creatinine Ratio Glucose Lactic Acid Calcium Total Bilirubin Direct Bilirubin AST ALT Alkaline Phosphatase Troponin T High Sens Troponin T Hi Sens 2 Hr 45 H NT pro BNP II Total Protein Albumin Globulin Urine Color Yellow Urine Clarity Clear Urine pH 6.0 Ur Specific [place] 1.020 Urine Protein 15 H Urine Glucose (UA) 1000 H Urine Ketones Negative Urine Occult Blood Negative Urine Nitrite Negative Urine Bilirubin Negative Urine Urobilinogen Normal Ur Leukocyte Esterase Negative Urine RBC 0-5 SEEN Urine WBC 0-5 SEEN Ur Squamous Epith Cells 0-5 SEEN Urine Bacteria 0 SEEN Hyaline Casts 10-25 SEEN Urine Mucus 0 SEEN ABG Data ABG results: ABG 06/15/25 06/15/25 15:53 16:35 Specimen Type MAIA ART Sample Site Not entered R Radial pH 7.29 L Bicarbonate Actual 24.8 Total CO2 26 Base Excess -2 O2 Saturation 97 ABG pCO2 51.5 H ABG pO2 97 VBG pH 7.31 L VBG pO2 27 VBG HCO3 29 H VBG Total CO2 31 VBG O2 Sat (Calc) 44 L VBG Base Excess 3 POC Mix VBG pCO2 Pt Tmp 56.9 H O2 Delivery Device Not entered BiPAP Vent Mode AC Radiography Chest X-Ray - ED: 2 View, Read by ED Physician, Read by Radiologist, Mediastinum, Bony Structures, Chronic Changes and Cardiomegaly Diagnostic Testing: Clinical Impression(s) from Imaging Studies Chest X-Ray 06/15/25 12:30 IMPRESSION: Opacification left mid and lower thorax. Consider pneumonia. Central congestion is present. Reading Location: [facility] Chest x-ray, 2 views, AP lateral, interpreted by myself and radiologist. There is cardiomegaly. Concern for a left sided lower lobe pneumonia and/or effusion. Opacification left lower lobe. Rhythm Strip Rhythm Strip: Sinus Rhythm Rate: 76 Ectopy: None EKG Initial EKG: Attestation: I personally reviewed and interpreted this EKG as follows: Interpretation: Sinus Rhythm and No Acute Injury Pattern Comments: Normal sinus rhythm rate 76. No acute signs of PA nor ischemia. No obvious dysrhythmia. <Dr. Kendall Dumont MD - Last Filed: 06/15/25 18:43> [facility] Narrative Medical decision making narrative: 74-year-old with dyspnea with a history of COPD, recent pneumonia treated with antibiotics, CHF and on a blood thinner due to A-fib and known DVT. She undergo a cardiac/respiratory workup. Received DuoNeb aerosol. Patient's were made sepsis protocol due to her hypotension and chest x-ray. On repeat examination doing well at 1:25 PM she is awake. She is alert. She is sitting up. She is tolerating well. I discussed with both her and her daughter diagnosis currently. They state her blood pressure has been running low like 90s to 100 at home. She will be given a liter normal saline. She will be started on Rocephin and Zithromax for the suspected pneumonia on chest x-ray. Cultures will be obtained additional labs and she will be admitted to the hospitalist. Patient is being fluid resuscitated due to her hypotension and left lower lobe pneumonia with concern for sepsis and septic shock. She received a liter. She will get a second liter for the third. Then we will determine further and continue IV fluids due to her history of CHF or manage her pressure with the Levophed that she is currently on and is also improving. Chest x-ray post central line placement of the right IJ shows no pneumothorax. Portable film. Nurse entered the physician's office stating patient was in V-fib. After reviewing the monitor strip patient had what appeared to be V. tach. 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 Patient had a short RR followed by a long RR and then the a parent bait with appears to have a configuration of ventricular tachycardia. ABG reveals a pH of 7.29, pCO2 of 51, PaO2 97.2, bicarb 24.8 with a base excess of -1.8. This represents a predominantly respiratory acidosis. She does have an increased AA gradient. The CO2 is improved from the CO2 noted on the mixed venous gas. Critical care time management in addition to Dr. Tamez. This included review of records, performing a limited exam, reviewing Dr. Tamez's note, bedside care, management refractory septic shock to fluids and pressors. Patient was started on Levophed peripherally since there was no central line access. Once central line access was established the Levophed was infused by central line. In spite of fluid boluses and Levophed patient remains hypotensive. Vahid-Synephrine was added at 1650. Total time of critical care performed by me 38 minutes. This included also speaking with family regarding patient's condition and need for central line, explaining laboratory results and images. Patient's blood pressure after starting Vahid-Synephrine is 74 systolic. Hospitalist ordered a CT of her chest. Nurse raise concern that she may not tolerate being supine. ([id number]) CT of the chest reveals mild heart failure, left lower lobe infiltrate and small left pleural effusion. There is no evidence in my opinion of a pericardial effusion. There is a renal cyst noted on the right. There is atrophy of her kidneys. There is evidence of atherosclerotic disease of the aorta. Lab Data Lab results narrative: CBC shows an elevated white count of 16.8. H&H of 10.3 and 32. Platelets 377. 81% neutrophils. Chemistries show a sodium 137. Gap 14. BUN and creatinine of 31 and 2.0 consistent with acute kidney injury most recent creatinine was around 1. Glucose 183. Liver enzymes show an elevated AST and ALT of 39 and 52. Troponin 48. 2-hour troponin 45. BNP 1200. Lactic acid elevated 2.3. PT/INR 27 2.5. PTT 32. UA is negative. No white or red cells. No bacteria. No nitrites. Troponins elevated 45. This is abnormal however doubt this is due to ischemic cardiac disease due to coronary arteries. Labs: Laboratory Results - last 24 hr 06/15/25 06/15/25 06/15/25 12:02 13:17 13:20 WBC 16.8 H RBC 3.54 L Hgb 10.3 L Hct 32.9 L MCV 92.9 MCH 29.1 MCHC 31.3 L RDW Std Deviation 48.7 H RDW Coeff of Airam 14.3 Plt Count 377 MPV 11.2 Immature Gran % (Auto) 2.100 H Neut % (Auto) 81.9 H Lymph % (Auto) 6.3 L [place] % (Auto) 7.6 Eos % (Auto) 1.3 Baso % (Auto) 0.8 Absolute Neuts (auto) 13.7 H Absolute Lymphs (auto) 1.06 Nucleated RBC % 0.1 PT 27.7 H INR 2.5 APTT 32.9 Sodium 137 Potassium 4.9 Chloride 99 Carbon Dioxide 24.2 Anion Gap 14 BUN 31 H Creatinine 2.08 H Estim Creat Clear Calc 28.44 L Est GFR (MDRD) Non-Af 25 L BUN/Creatinine Ratio 15.0 Glucose 183 H Lactic Acid 2.3 H* Calcium 9.5 Total Bilirubin 0.44 Direct Bilirubin 0.14 AST 39 H ALT 52 H Alkaline Phosphatase 59 Troponin T High Sens 48 H Troponin T Hi Sens 2 Hr NT pro BNP II 1200 H Total Protein 6.5 Albumin 2.8 L Globulin 3.6 Urine Color Urine Clarity Urine pH Ur Specific [place] Urine Protein Urine Glucose (UA) Urine Ketones Urine Occult Blood Urine Nitrite Urine Bilirubin Urine Urobilinogen Ur Leukocyte Esterase Urine RBC Urine WBC Ur Squamous Epith Cells Urine Bacteria Hyaline Casts Urine Mucus 06/15/25 06/15/25 14:34 14:52 WBC RBC Hgb Hct MCV MCH MCHC RDW Std Deviation RDW Coeff of Airam Plt Count MPV Immature Gran % (Auto) Neut % (Auto) Lymph % (Auto) [place] % (Auto) Eos % (Auto) Baso % (Auto) Absolute Neuts (auto) Absolute Lymphs (auto) Nucleated RBC % PT INR APTT Sodium Potassium Chloride Carbon Dioxide Anion Gap BUN Creatinine Estim Creat Clear Calc Est GFR (MDRD) Non-Af BUN/Creatinine Ratio Glucose Lactic Acid Calcium Total Bilirubin Direct Bilirubin AST ALT Alkaline Phosphatase Troponin T High Sens Troponin T Hi Sens 2 Hr 45 H NT pro BNP II Total Protein Albumin Globulin Urine Color Yellow Urine Clarity Clear Urine pH 6.0 Ur Specific [place] 1.020 Urine Protein 15 H Urine Glucose (UA) 1000 H Urine Ketones Negative Urine Occult Blood Negative Urine Nitrite Negative Urine Bilirubin Negative Urine Urobilinogen Normal Ur Leukocyte Esterase Negative Urine RBC 0-5 SEEN Urine WBC 0-5 SEEN Ur Squamous Epith Cells 0-5 SEEN Urine Bacteria 0 SEEN Hyaline Casts 10-25 SEEN Urine Mucus 0 SEEN ABG Data ABG results: ABG 06/15/25 06/15/25 15:53 16:35 Specimen Type MAIA ART Sample Site Not entered R Radial pH 7.29 L Bicarbonate Actual 24.8 Total CO2 26 Base Excess -2 O2 Saturation 97 ABG pCO2 51.5 H ABG pO2 97 VBG pH 7.31 L VBG pO2 27 VBG HCO3 29 H VBG Total CO2 31 VBG O2 Sat (Calc) 44 L VBG Base Excess 3 POC Mix VBG pCO2 Pt Tmp 56.9 H O2 Delivery Device Not entered BiPAP Vent Mode AC Radiography Chest X-Ray - ED: 1 View (Single view portable chest x-ray reveals right IJ to be in proper position. There is no evidence of pneumothorax. The film had a slight worsening from the initial film. There is entirely reviewed turbid by me at 1753.) Diagnostic Testing: Clinical Impression(s) from Imaging Studies Chest X-Ray 06/15/25 12:30 IMPRESSION: Opacification left mid and lower thorax. Consider pneumonia. Central congestion is present. Reading Location: [facility] EKG Follow-up EKG: Attestation: I personally reviewed and interpreted this EKG as follows: Interpretation: Sinus Rhythm (Rate is 63. QRS duration 70 ms. QT duration 480 ms which is prolonged. [place] is normal. Low voltage. Low voltage due to body habitus. There is artifact as well. There may be a P wave in lead II.) and Atrial Fibrillation Comments: Patient has history of paroxysmal atrial fibrillation. Treatment and Re-Evaluation :: CT was not interpreted as of 1842. Patient is now in the ICU. Care has been transferred and hospitalist to follow-up on CAT scan result Procedures <Dr. Mike Tamez MD - Last Filed: 06/15/25 16:32> Other Procedures Procedure(s): Patient had persistent hypotension. She had 2 IVs and was receiving IV fluid. We discussed with her and the family placing a central line. With ultrasound and under sterile technique right IJ central line was placed by Dr. Dumont. First attempt. Return of venous dark blood. No pulsation. Central line was threaded. All 3 ports had returned. They were flushed. Nurses dressing the central line. Patient did well throughout the procedure. <Dr. Kendall Dumont MD - Last Filed: 06/15/25 18:43> Other Procedures Procedure(s): Patient had persistent hypotension. She had 2 IVs and was receiving IV fluid. We discussed with her and the family placing a central line. With ultrasound and under sterile technique right IJ central line was placed by Dr. Dumont. First attempt. Return of venous dark blood. No pulsation. Central line was threaded. All 3 ports had returned. They were flushed. Nurses dressing the central line. Patient did well throughout the procedure. Patient was consented for a central line. She was informed that the first attempt would be a right IJ. If this was unsuccessful or concerned that the vein is overlying the carotid would consider subclavian. She was explained risk benefits. She was told because she is on a blood thinner the most likely and serious problem would be bleeding. This would be more likely if the needle passed through the posterior wall of the vessel. Patient was informed of my complications. She was also informed that another significant complication would be a pneumothorax which would be a whole placed lining of the lung that would require a chest tube. Patient also was not told possibility of infection, clot. She was told these are the most significant serious problems. Was not limited to this. She given opportunity ask questions. She had none. She states that she never had a central line before. With the assistance of Dr. Tamez patient was prepped draped sterile manner. The area was anesthetized with 4 send lidocaine by local infiltration. Using the ultrasound machine the right IJ was identified. The vessel was cannulated successfully on the second attempt on the way in. Using Salinger technique 7.5 [place] triple-lumen was placed. Blood was aspirated from all 3 ports. All 3 ports were flushed. The line was then secured. Will obtain chest x-ray to assess placement and to rule out pneumothorax, which is unlikely since this was done under ultrasound guidance. Prior to placement of line patient was placed on BiPAP because she had significant difficulty when she was supine when I initially assessed to see if the IJ was visible and determine the size and location. <Dr. Mike Tamez MD - Last Filed: 06/15/25 16:32> Critical Care Time Critical Care Time: Yes Critical care time (excluding procedures): 30-74 minutes, Including time spent:, Discussing w/Patient &/or Family/Learning And Development Assistant, Discussing w/Consultants, Arranging Admission or Transfer, Performing Direct Patient Care at Bedside and - (35 minutes) Discharge Plan Dx/Rx/DC Orders Clinical Impression: Septic shock, Pneumonia, Acute hypotension, CHF (congestive heart failure), Acute kidney injury, Chronic anticoagulation, Anemia, History of atrial fibrillation, Acute exacerbation of chronic obstructive pulmonary disease, Encounter for central line placement, Acute hypoxemic respiratory failure Disposition Disposition: Acute Care Hospital [facility] Discharge Date/Time: 06/15/25 17:45
[2025-06-15 12:17] LABS: Hematocrit 32.9 % (37-47); Hemoglobin 10.3 g/dL (12.0-15.0); Immature Granulocytes Count 0.350 X10^3/uL (0.0-0.0); Mean Corp Hgb Conc 31.3 g/dL (32-36); Mean Corpuscular Volume 92.9 fL (81-99); Mean Platelet Vol. 11.2 fl (6.2-12.0); NRBC Flagged by Analyzer 0.1 % (0-5); Platelet Count 377 K/mm3 (150-450); RBC Distribution Width CV 14.3 % (11.6-14.6); RBC Distribution Width SD 48.7 fl (35.1-43.9); Red Blood Count 3.54 M/mm3 (4.2-5.4); White Blood Count 16.8 K/mm3 (4.4-11.0)
--- NOTE | 2025-06-15 12:30 | RAD_ITS ---
PROCEDURE: RAD/Chest PA and Lateral
[2025-06-15 12:35] LABS: Troponin T High Sensitivity 48 ng/L (<=14)
[2025-06-15 12:37] LABS: Pro- Brain NATRIURETIC PEPTIDE 1200 pg/mL (<=900)
[2025-06-15 12:38] LABS: Anion Gap 14 (5-15); BUN 31 mg/dL (4-19); BUN/Creat Ratio 15.0 RATIO (10-20); Calcium,Total 9.5 mg/dL (7.6-11.0); Carbon Dioxide 24.2 mmol/L (21.0-32.0); Chloride 99 mmol/L (98-108); Estimated Creatinine Clearance 28.44 ml/min (50-250); Glucose 183 mg/dL (70-99); Potassium 4.9 mmol/L (3.3-5.1)
--- NOTE | 2025-06-15 12:44 | CM.ED ---
Social Work Date of referral: 06/15/2025 Reason for referral: Advanced Care Directives (ACD's) not on file. Referred by: Social Work Identification Patient provided consent to social work visit. Manager Of Tires Sales requested patient or patient's family member to bring in a copy of ACD's which patient agreed to do. Domi Burrell, RUG DYER, OPERATIONS EXECUTIVE
[2025-06-15 13:38] LABS: Prothrombin Time (Protime)PT. 27.7 SECONDS (11.7-14.9)
[2025-06-15 13:39] LABS: Partial Thromboplast Time 32.9 Seconds (24.1-36.2)
[2025-06-15] MEDS: Ceftriaxone 2 GM in 0.9% Normal Saline (50mL MB+) 50 ML IV (13:39)
[2025-06-15] MEDS: 0.9% Normal Saline (1000mL) 1,000 ML 999 ML IV ×3 (13:39→16:19)
[2025-06-15 13:59] LABS: AST(SGOT) 39 U/L (<=31); Alanine Aminotransfer ALT/SGPT 52 U/L (<=34); Albumin, Serum 2.8 g/dL (3.4-4.8); Alkaline Phosphatase 59 U/L (35-104); Bilirubin, Direct 0.14 mg/dL (0.00-0.30); Globulin 3.6 g/dL (2.2-4.2)
[2025-06-15] MEDS: Azithromycin 500 MG in 0.9% Normal Saline (250mL Bag) 250 ML 255 MG IV (14:36)
[2025-06-15 14:39] LABS: Mucous, Urine 0 SEEN /hpf (<or=2+)
[2025-06-15 14:43] LABS: Color, Urine Yellow (Yellow); Glucose, Dipstick 1000 mg/dl (Normal); Ketone-Dipstick Negative (Negative); Leukocyte Esterase-Dipstick Negative /ul (Negative); Nitrite-Dipstick Negative (Negative); Occult Blood-Urine Negative /ul (Negative); Protein-Dipstick 15 mg/dl (Negative); Specific Gravity, Urine 1.020 (1.002-1.030); Urine Bilirubin Dipstick Negative (Negative)
[2025-06-15 14:49] LABS: Red Blood Cells-Urine 0-5 SEEN /hpf (0-5); Squamous Epithelial Cells - UA 0-5 SEEN /hpf (5-10)
[2025-06-15] MEDS: Norepinephrine Bit/0.9% NaCl 8 MG/250 ML IV.SOLN 9.4 MG CONT INF (15:20)
[2025-06-15 15:29] LABS: Troponin T High Sens 2 HR 45 ng/L (<=14)
[2025-06-15 15:56] LABS: SITE Not entered; VBG BASE EXCESS 3 mmol/L (-1.0-3.5); VBG PO2 27 mmHg (25-40); VBG SO2 44 % (50-70); VBG TCO2 31 mmol/L (23-33)
--- NOTE | 2025-06-15 16:20 | RAD_ITS ---
PROCEDURE: RAD/Chest 1 View (Portable)
[2025-06-15 16:39] LABS: Base Excess -2 mmol/L (-2 to +2); PO2 97 mmHG (75-100); SITE R Radial; SO2 97 % (94-98)
--- NOTE | 2025-06-15 16:52 | PCM.HP.STD ---
HPI - General General Date of Admission: 06/15/25 Date of Service: 06/15/25 Chief Complaint: Acute on chronic shortness of breath, hypotension. HPI Narrative SALVADOR STORY, is a 74 F who presents with multiple comorbidities was brought to ED by EMS for being more short of breath and low blood pressure and generalized weakness for about 1 day. EMS vitals were 97/66, heart rate 73/min, pulse ox 88% on room air, 95% on 10 L of oxygen. Chronically she is on 2 L of oxygen at home but still short of breath 3 to 4 L at home. Denies chest pain pressure, tightness. She has dry cough. No fever. She was recently discharged from [facility] on past Tuesday/ about 2 days ago, after management of pneumonia, CHF and COPD exacerbation, chronic A-fib on Eliquis DVT in the leg. In the ED, patient was found to have hypotension, blood pressure 92/60 which dropped further in 50s. Heart rate in 60s. Twelve-lead EKG individually reviewed, NSR 76 beats minute, QTc 447 ms, low voltage QRS. In ED, she had 1 L normal saline bolus, IV ceftriaxone and azithromycin. [facility] Medical History Blood clot in leg COPD (chronic obstructive pulmonary disease) Afib Home Medications ?Medication ?Instructions ?Recorded ?Last Taken ?Type BIPAP -Bilevel Positive Airway Pulmonary Information 06/15/25 Unknown History Pressure ([facility] INFORMATIONAL USE ONLY) OXYGEN - Supplemental ([facility] Pulmonary Information 06/15/25 Unknown History INFORMATIONAL USE ONLY) albuterol sulfate 2.5 mg/3 mL mg COPD 06/15/25 Unknown History (0.083 %) solution for nebulization apixaban 5 mg tablet (Eliquis) 5 mg PO BID AFIB 06/15/25 Unknown History aspirin 81 mg tablet,delayed 81 mg PO DAILY HEART 06/15/25 Unknown History release (Adult Aspirin Regimen) bumetanide 1 mg tablet 1 mg PO DAILY DIURETIC 06/15/25 Unknown History cyanocobalamin (vitamin B-12) 1,000 mcg sublingual DAILY 06/15/25 Unknown History 1,000 mcg sublingual tablet SUPPLEMENT empagliflozin 10 mg tablet 10 mg PO DAILY WATER RETENTION 06/15/25 Unknown History (Jardiance) fluoxetine 40 mg capsule 40 mg PO DAILY MOOD 06/15/25 Unknown History hydrocodone-acetaminophen 5-325mg 1 tab PO TID PAIN 06/15/25 06/15/25 History 5mg-325mg hydroxyzine HCl 25 mg tablet 25 mg PO BID ITCHING 06/15/25 Unknown History levothyroxine 137 mcg tablet 137 mcg PO DAILY HYPOTHYROID 06/15/25 Unknown History (Synthroid) losartan 25 mg tablet 25 mg PO DAILY HYPERTENSIO 06/15/25 Unknown History metoprolol succinate 100 mg 12.5 mg PO BID AFIB 06/15/25 Unknown History tablet,extended release 24 hr pramipexole 0.125 mg tablet 0.125 mg PO TID TREMORS 06/15/25 Unknown History prednisone 5 mg tablet 5 mg PO DAILY rHUMATOID ARTHRITIS 06/15/25 Unknown History pregabalin 75 mg capsule 75 mg PO TID NEUROPATHY 06/15/25 Unknown History rosuvastatin 10 mg tablet 10 mg PO QHS HYPERLIPIDEMIA 06/15/25 Unknown History trazodone 100 mg tablet 100 mg PO QHS SLEEP 06/15/25 Unknown History Allergy/AdvReac Type Severity Reaction Status Date / Time amoxicillin AdvReac Nausea Verified 06/15/25 11:49 tramadol AdvReac Nausea Verified 06/15/25 11:49 Social History Smoking Status: Heavy Smoker (>10/day) ROS ROS Narrative 14 system ROS could not be obtained because patient on BiPAP and difficulty in complication. HPI mainly taken from chart review and and direct close questions of yes or no answer because patient on BiPAP with respiratory failure and hypotension. Vital Signs Vital Signs Vital Signs: 06/15/25 11:49 06/15/25 12:03 06/15/25 12:04 Temperature 97.4 F L Temperature Source Oral Pulse Rate 76 Respiratory Rate 22 H Respiratory Effort Short of Breath Labored Respiratory Depth Shallow Respiratory Pattern Tachypnea Blood Pressure 92/60 Blood Pressure Mean 70 Pulse Ox 95 94 Oxygen Delivery Method Room Air Nasal Cannula Room Air Oxygen Flow Rate (L/min) 4 3 3 06/15/25 12:47 06/15/25 12:47 06/15/25 12:47 Temperature Temperature Source Pulse Rate 74 80 Respiratory Rate 20 H 25 H Respiratory Effort Respiratory Depth Respiratory Pattern Normal Blood Pressure 91/73 Blood Pressure Mean 79 Pulse Ox 99 99 Oxygen Delivery Method Nasal Cannula Nasal Cannula Oxygen Flow Rate (L/min) 3 4 06/15/25 12:55 06/15/25 13:00 06/15/25 13:15 Temperature 97.5 F L Temperature Source Oral Pulse Rate 74 Respiratory Rate 23 H Respiratory Effort Respiratory Depth Respiratory Pattern Blood Pressure 85/49 L 85/49 L Blood Pressure Mean 61 62 Pulse Ox 94 Oxygen Delivery Method Nasal Cannula Nasal Cannula Oxygen Flow Rate (L/min) 3 2 06/15/25 13:22 06/15/25 13:30 06/15/25 13:45 Temperature Temperature Source Pulse Rate 80 73 107 H Respiratory Rate 22 H 22 H 22 H Respiratory Effort Respiratory Depth Respiratory Pattern Blood Pressure 74/38 L 98/66 95/63 Blood Pressure Mean 49 75 68 Pulse Ox Oxygen Delivery Method Oxygen Flow Rate (L/min) 06/15/25 14:00 06/15/25 14:00 06/15/25 14:15 Temperature Temperature Source Pulse Rate 102 H 110 H 108 H Respiratory Rate 24 H 19 H 22 H Respiratory Effort Respiratory Depth Respiratory Pattern Blood Pressure 107/84 H 107/84 H 94/62 Blood Pressure Mean 91 91 73 Pulse Ox 94 Oxygen Delivery Method Oxygen Flow Rate (L/min) 06/15/25 14:33 06/15/25 14:38 06/15/25 14:45 Temperature Temperature Source Pulse Rate 109 H 113 H Respiratory Rate 24 H 22 H Respiratory Effort Respiratory Depth Respiratory Pattern Blood Pressure 63/46 L 63/45 L 63/45 L Blood Pressure Mean 54 52 51 Pulse Ox Oxygen Delivery Method Oxygen Flow Rate (L/min) 06/15/25 14:45 06/15/25 14:50 06/15/25 14:55 Temperature Temperature Source Pulse Rate 104 H 104 H 97 Respiratory Rate 25 H 23 H 22 H Respiratory Effort Respiratory Depth Respiratory Pattern Blood Pressure 51/20 L 75/31 L 50/27 L Blood Pressure Mean 27 44 32 Pulse Ox 94 Oxygen Delivery Method Oxygen Flow Rate (L/min) 06/15/25 15:01 06/15/25 15:15 06/15/25 15:30 Temperature Temperature Source Pulse Rate 109 H Respiratory Rate 23 H Respiratory Effort Respiratory Depth Respiratory Pattern Blood Pressure 58/37 L Blood Pressure Mean 41 Pulse Ox 96 98 Oxygen Delivery Method Oxygen Flow Rate (L/min) 06/15/25 15:36 06/15/25 15:45 06/15/25 15:55 Temperature Temperature Source Pulse Rate 54 L Respiratory Rate 17 Respiratory Effort Respiratory Depth Respiratory Pattern Blood Pressure 53/31 L 79/64 L Blood Pressure Mean 40 70 Pulse Ox 99 99 Oxygen Delivery Method Oxygen Flow Rate (L/min) 06/15/25 16:00 06/15/25 16:00 06/15/25 16:05 Temperature Temperature Source Pulse Rate 59 L 59 L 58 L Respiratory Rate 23 H 23 H 23 H Respiratory Effort Respiratory Depth Respiratory Pattern Blood Pressure 76/48 L 56/37 L Blood Pressure Mean 53 43 Pulse Ox 96 Oxygen Delivery Method Bi-pap Oxygen Flow Rate (L/min) 06/15/25 16:12 06/15/25 16:15 06/15/25 16:17 Temperature Temperature Source Pulse Rate 56 L 62 62 Respiratory Rate 21 H 18 25 H Respiratory Effort Respiratory Depth Respiratory Pattern Blood Pressure 102/40 L 68/56 L Blood Pressure Mean 57 62 Pulse Ox 87 89 Oxygen Delivery Method Bi-pap Bi-pap Bi-pap Oxygen Flow Rate (L/min) 06/15/25 16:20 06/15/25 16:27 Temperature 97.5 F L Temperature Source Pulse Rate 65 65 Respiratory Rate 19 H 19 H Respiratory Effort Respiratory Depth Respiratory Pattern Blood Pressure 99/58 L 99/58 L Blood Pressure Mean 69 71 Pulse Ox 100 Oxygen Delivery Method Bi-pap Oxygen Flow Rate (L/min) Weight Weight: 261 lb 11.019 oz Body Mass Index (BMI) 56.6 Physical Exam Narrative General: Alert, Oriented x3, Cooperative, BMI 56.6 kg/m? HEENT: Atraumatic, PERRLA, EOMI, Normocephalic. Oral: On BiPAP Neck: Wide neck. Right IJ CVC catheter Chest wall/Lungs: Air entry severely diminished in all lung ball. Bilaterally expiratory rhonchi Cardiovascular: Sinus rhythm, PVC, short run of NSVT, no murmur gallop or rub Abdomen: Bowel Sounds Present, Soft, Non Tender, Non-Distended : No dysuria. No renal angle tenderness. No suprapubic tenderness. Extremities: Mild bilateral edema, capillary Refill Less than 3 Seconds Skin: No ulcer or rash. No lower extremity wrapped. Musculoskeletal: No Tenderness to Palpation of Joints or Extremities. ROM restricted Neurological: Cranial nerves II-XII grossly intact, DTR 2+/4. No acute focal neurological deficit. Psych/Mental Status: Flat affect Results Lab / Micro Data 06/15/25 12:02 06/15/25 12:02 Labs: Laboratory Results - last 24 hr 06/15/25 12:02: WBC 16.8 H, RBC 3.54 L, Hgb 10.3 L, Hct 32.9 L, MCV 92.9, MCH 29.1, MCHC 31.3 L, RDW Std Deviation 48.7 H, RDW Coeff of Airam 14.3, Plt Count 377, MPV 11.2, Immature Gran % (Auto) 2.100 H, Neut % (Auto) 81.9 H, Lymph % (Auto) 6.3 L, [place] % (Auto) 7.6, Eos % (Auto) 1.3, Baso % (Auto) 0.8, Absolute Neuts (auto) 13.7 H, Absolute Lymphs (auto) 1.06, Nucleated RBC % 0.1, Sodium 137, Potassium 4.9, Chloride 99, Carbon Dioxide 24.2, Anion Gap 14, BUN 31 H, Creatinine 2.08 H, Estim Creat Clear Calc 28.44 L, Est GFR (MDRD) Non-Af 25 L, BUN/Creatinine Ratio 15.0, Glucose 183 H, Calcium 9.5, Total Bilirubin 0.44, Direct Bilirubin 0.14, AST 39 H, ALT 52 H, Alkaline Phosphatase 59, Troponin T High Sens 48 H, NT pro BNP II 1200 H, Total Protein 6.5, Albumin 2.8 L, Globulin 3.6 06/15/25 13:17: Lactic Acid 2.3 H* 06/15/25 13:20: PT 27.7 H, INR 2.5, APTT 32.9 06/15/25 14:34: Urine Color Yellow, Urine Clarity Clear, Urine pH 6.0, Ur Specific [place] 1.020, Urine Protein 15 H, Urine Glucose (UA) 1000 H, Urine Ketones Negative, Urine Occult Blood Negative, Urine Nitrite Negative, Urine Bilirubin Negative, Urine Urobilinogen Normal, Ur Leukocyte Esterase Negative, Urine RBC 0-5 SEEN, Urine WBC 0-5 SEEN, Ur Squamous Epith Cells 0-5 SEEN, Urine Bacteria 0 SEEN, Hyaline Casts 10-25 SEEN, Urine Mucus 0 SEEN 06/15/25 14:52: Troponin T Hi Sens 2 Hr 45 H Micro: Microbiology 06/15/25 12:20 Mucosa - Nose SARS-CoV-2, Influenza & RSV (PCR) - Final ABG Data ABG results: ABG 06/15/25 06/15/25 15:53 16:35 Specimen Type MAIA ART Sample Site Not entered R Radial pH 7.29 L Bicarbonate Actual 24.8 Total CO2 26 Base Excess -2 O2 Saturation 97 ABG pCO2 51.5 H ABG pO2 97 VBG pH 7.31 L VBG pO2 27 VBG HCO3 29 H VBG Total CO2 31 VBG O2 Sat (Calc) 44 L VBG Base Excess 3 POC Mix VBG pCO2 Pt Tmp 56.9 H O2 Delivery Device Not entered BiPAP Vent Mode AC Rhythm Strip Rhythm Strip: Sinus Rhythm Rate: 76 Ectopy: None Imaging Radiology Impression Chest X-Ray 06/15/25 12:30 IMPRESSION: Opacification left mid and lower thorax. Consider pneumonia. Central congestion is present. Reading Location: [id number] Assessment & Plan Assessment/Plan (1) Hypotension: (2) Acute on chronic respiratory failure with hypoxia and hypercapnia: PLAN: Plan This 74-year-old female being admitted for acute on chronic shortness of breath generalized weakness and hypotension. 1. Acute on chronic combined respiratory failure, exact etiology unclear possible COPD exacerbation/effusion/pulmonary edema/pneumonia: Patient is being admitted in ICU. Chest x-ray, portable suboptimal quality. Shows opacification of left lingular and lower lobe with central congestion. Repeat chest x-ray also reviewed and similar. Flower Shop Laborer/Designer consulted. ABG 7.2 on BiPAP. Repeat ABG ordered. Treat underlying disorder 2. Suspected left lower lobe pneumonia: Pneumonia workup ordered including blood culture, respiratory panel and sputum culture. Triple PCR for SARS-CoV-2, flu and RSV are negative. Started empirically on IV vancomycin and Zosyn. 3. Most likely COPD exacerbation: Patient is being managed on scheduled bronchodilator, IV Solu-Medrol, Mucinex, incentive spirometry and Pep. 4. Hypotension, shock exact etiology unclear possible distributive/obstructive, less likely cardiogenic/septic: Patient has elevated creatinine 2.08 with estimated creatinine clearance 28 mL/min. IV contrast is contrary to therefore bilateral venous duplex ordered to rule out DVT. Perfusion scan ordered for tomorrow AM. Empirically enoxaparin 1 mg/kg body weight, 1 dose ordered. She has history of DVT and A-fib and is on Eliquis at home. IV norepinephrine. Lactic acid elevated. 5. Acute on chronic HFpEF: Last echo in June 2018 shows EF 55%, no RWMA, normal mitral valve. Tricuspid and aortic valve not visualized. Normal RV size and systolic function. Chest x-ray suggestive of pulmonary edema and NT proBNP elevated. Troponins 48 and 45. Decreasing trend. Mild troponin elevation nonischemic in nature, due to acute myocardial injury from increased cardiac demand 6. Paroxysmal A-fib: As per ER physician, patient on Eliquis was not showing up on home medication list. Empirically started on enoxaparin 1 mg per therapeutic dose until PE/DVT ruled out. After that patient can be on Eliquis 5 mg p.o. twice daily. Currently NSR, heart rate controlled. 7. Mildly elevated transaminases probably due to CHF: AST 39 ALT 52. 8. DVT prophylaxis: History of DVT. On therapeutic dose of Lovenox. Living will/advanced directive/end of life care: Patient does have living will or advanced directive. Her daughter present in the ED is primary power of booster assembler for health and her son is secondary POA. After discussion of benefits/risks procedures involved with full code, DNR CC arrest and DNR CC, the patient opted for full code. Patient does want artificial life support including intubation, tube feed, ventilator and/chest compression, central venous catheter, vasopressor and DC shock if needed. Patient does not want to prolong intubation/ventilator. Total time spent in [id number] encounter in discussion of advanced directive 17 minutes. Microbiology Past 72 Hours 06/15/25 12:20 Mucosa - Nose SARS-CoV-2, Influenza & RSV (PCR) - Final Laboratory Results 06/15/25 12:02: WBC 16.8 H, RBC 3.54 L, Hgb 10.3 L, Hct 32.9 L, MCV 92.9, MCH 29.1, MCHC 31.3 L, RDW Std Deviation 48.7 H, RDW Coeff of Airam 14.3, Plt Count 377, MPV 11.2, Immature Gran % (Auto) 2.100 H, Neut % (Auto) 81.9 H, Lymph % (Auto) 6.3 L, [place] % (Auto) 7.6, Eos % (Auto) 1.3, Baso % (Auto) 0.8, Absolute Neuts (auto) 13.7 H, Absolute Lymphs (auto) 1.06, Nucleated RBC % 0.1, Sodium 137, Potassium 4.9, Chloride 99, Carbon Dioxide 24.2, Anion Gap 14, BUN 31 H, Creatinine 2.08 H, Estim Creat Clear Calc 28.44 L, Est GFR (MDRD) Non-Af 25 L, BUN/Creatinine Ratio 15.0, Glucose 183 H, Calcium 9.5, Total Bilirubin 0.44, Direct Bilirubin 0.14, AST 39 H, ALT 52 H, Alkaline Phosphatase 59, Troponin T High Sens 48 H, NT pro BNP II 1200 H, Total Protein 6.5, Albumin 2.8 L, Globulin 3.6 06/15/25 13:17: Lactic Acid 2.3 H* 06/15/25 13:20: PT 27.7 H, INR 2.5, APTT 32.9 06/15/25 14:34: Urine Color Yellow, Urine Clarity Clear, Urine pH 6.0, Ur Specific [place] 1.020, Urine Protein 15 H, Urine Glucose (UA) 1000 H, Urine Ketones Negative, Urine Occult Blood Negative, Urine Nitrite Negative, Urine Bilirubin Negative, Urine Urobilinogen Normal, Ur Leukocyte Esterase Negative, Urine RBC 0-5 SEEN, Urine WBC 0-5 SEEN, Ur Squamous Epith Cells 0-5 SEEN, Urine Bacteria 0 SEEN, Hyaline Casts 10-25 SEEN, Urine Mucus 0 SEEN 06/15/25 14:52: Troponin T Hi Sens 2 Hr 45 H 06/15/25 15:53: Specimen Type MAIA, Sample Site Not entered, VBG pH 7.31 L, VBG pO2 27, VBG HCO3 29 H, VBG Total CO2 31, VBG O2 Sat (Calc) 44 L, VBG Base Excess 3, POC Mix VBG pCO2 Pt Tmp 56.9 H, O2 Delivery Device Not entered 06/15/25 16:35: Specimen Type ART, Sample Site R Radial, pH 7.29 L, Bicarbonate Actual 24.8, Total CO2 26, Base Excess -2, O2 Saturation 97, ABG pCO2 51.5 H, ABG pO2 97, O2 Delivery Device BiPAP, Vent Mode AC Clinical Impression(s) from Imaging Studies Chest X-Ray 06/15/25 12:30 IMPRESSION: Opacification left mid and lower thorax. Consider pneumonia. Central congestion is present. Reading Location: [id number] Charges/Coding Visit Charges Inpatient E&M: 23277 Init Hosp L3 Procedures Hospitalists Procedures: 40739 Advncd Care Plan 30 Min
[2025-06-15] MEDS: Phenylephrine 10 MG in 0.9% Normal Saline (250mL Bag) 249 ML 15 MG CONT INF (17:18)
[2025-06-15 17:20] LABS: Reflex Lactate? Y
--- NOTE | 2025-06-15 17:47 | CT_ITS ---
PROCEDURE: CT/Chest without Contrast
--- NOTE | 2025-06-15 18:15 | NURSING ---
Arrived from ER, on Bipap. Vitals stable. Pt A/Ox3, denies SOB or pain. Call light given to patient and instructed to call if needing help. Multiple emergencies with other patients happening on the unit at this time.
[2025-06-15] MEDS: proMETHazine 25 MG/ML Syringe 12.5 MG IM (19:11)
--- NOTE | 2025-06-15 19:37 | PCMCONS.TICU ---
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 She was noted to be hypotensive at OSH and her antihypertensives were D/C. She was discharged ~3d ago but was very weak, unable to stand or pivot to use her bedside commode & also C/O poor appetite. She is not normally on daytime O2 but was D/C on 3L O2. She had progressively worsening SOB, hypoxemia, cough but unable to mobilize phlegm & increase in her LE edema. In the ED she was noted to be very hypoxemic and hypotensive. She received empiric IV Abx and was started on pressor support via Rt IJ CVC placed. She is now in the ICU on NIV support but continues to have increased WOB and is altered. She has ~400cc in her Medel. NEpi @ 30 Vahid @ 70 15/8 45% PE: General: Super morbidly obese female, acute on chronically ill appearing in moderate distress; +NIV HEENT: anicteric Sclera; nl nose; unable to assess JVF due to adiposity Cardiovascular: tachy; No rubs, gallops; 3+ BLE pitting edema Respiratory: diminished; no crackles, wheezes, or rhonchi Abdominal: Non-tender; Non distended; hypoBS x 4; No Hepatosplenomegaly Extremities: cool with mottling to feet; capillary refill > 2 sec Neurological: lethargic/altered but awakens easily and is spont moving extremities A/P: #Acute on chronic hypoxemic hypercapnic respiratory failure #Shock, septic vs cardiogenic vs other #CHF exacerbation #?Pericardial effusion #?PNA #COPD #CHASIDY on CKD #PAF (new Dx) #Recent Legionella PNA #Hx Takotsubo cardiomyopathy #Super morbid obesity #DVT #ENEIDA on home CPAP #Former tobacco abuse -Cont NIV; settings reviewed; adequate Ve but her work of breathing and metabolic demands in the setting of severe shock are very high and she will likely require intubation for definitive respiratory support -Cont NEpi + Vahid; titrate MAP > 65; unclear if this is sepsis drive vs cardiogenic vs effusion/tamponade vs other; less likely to be obstructive from PE given she is on chronic A/C; trend lactate; STAT TTE & cardiology consult -Cont emp IV Abx- vanc/Zosyn; F/U Cx -Strict I/Os; cannot diurese due to BP at this time -Monitor HR; transitioned to FD LMWH from Eliquis; may need amio if she develops RVR -Cont nebs but avoid scheduled albuterol; do not suspect this is COPD-driven but on emp steroids NPO FD LMWH, PPI Poor prognosis; patient looks like she is raysa-arrest and I would not be surprised if she codes tonight; updated family who are at bedside re: treatment plan CCT: 60 min The entirety of this encounter was completed via telemedicine. [facility] Medical History Blood clot in leg COPD (chronic obstructive pulmonary disease) Afib Home Medications ?Medication ?Instructions ?Recorded ?Last Taken ?Type BIPAP -Bilevel Positive Airway Pulmonary Information 06/15/25 06/15/25 History Pressure ([facility] INFORMATIONAL USE ONLY) OXYGEN - Supplemental ([facility] Pulmonary Information 06/15/25 06/15/25 History INFORMATIONAL USE ONLY) albuterol sulfate 2.5 mg/3 mL mg COPD 06/15/25 Unknown History (0.083 %) solution for nebulization apixaban 5 mg tablet (Eliquis) 5 mg PO BID AFIB 06/15/25 Unknown History aspirin 81 mg tablet,delayed 81 mg PO DAILY HEART 06/15/25 Unknown History release (Adult Aspirin Regimen) bumetanide 1 mg tablet 1 mg PO DAILY DIURETIC 06/15/25 Unknown History cyanocobalamin (vitamin B-12) 1,000 mcg sublingual DAILY 06/15/25 Unknown History 1,000 mcg sublingual tablet SUPPLEMENT empagliflozin 10 mg tablet 10 mg PO DAILY WATER RETENTION 06/15/25 Unknown History (Jardiance) fluoxetine 40 mg capsule 40 mg PO DAILY MOOD 06/15/25 Unknown History hydrocodone-acetaminophen 5-325mg 1 tab PO TID PAIN 06/15/25 06/15/25 History 5mg-325mg hydroxyzine HCl 25 mg tablet 25 mg PO BID ITCHING 06/15/25 Unknown History levothyroxine 137 mcg tablet 137 mcg PO DAILY HYPOTHYROID 06/15/25 Unknown History (Synthroid) losartan 25 mg tablet 25 mg PO DAILY HYPERTENSIO 06/15/25 Unknown History metoprolol succinate 100 mg 12.5 mg PO BID AFIB 06/15/25 Unknown History tablet,extended release 24 hr pramipexole 0.125 mg tablet 0.125 mg PO TID TREMORS 06/15/25 Unknown History prednisone 5 mg tablet 5 mg PO DAILY rHUMATOID ARTHRITIS 06/15/25 Unknown History pregabalin 75 mg capsule 75 mg PO TID NEUROPATHY 06/15/25 Unknown History rosuvastatin 10 mg tablet 10 mg PO QHS HYPERLIPIDEMIA 06/15/25 Unknown History trazodone 100 mg tablet 100 mg PO QHS SLEEP 06/15/25 Unknown History Allergy/AdvReac Type Severity Reaction Status Date / Time amoxicillin AdvReac Nausea Verified 06/15/25 11:49 tramadol AdvReac Nausea Verified 06/15/25 11:49 Social History Smoking Status: Heavy Smoker (>10/day) Objective Data Objective Data Vital Signs: Vital Signs Last response Temperature 35.6 C L 06/15/25 18:15 Temperature Source Temporal 06/15/25 18:15 Pulse Rate 103 H 06/15/25 18:15 Respiratory Rate 23 H 06/15/25 18:15 Respiratory Effort Short of Breath, Labored 06/15/25 12:04 Respiratory Depth Shallow 06/15/25 12:04 Respiratory Pattern Tachypnea 06/15/25 15:30 Blood Pressure 94/46 L 06/15/25 18:15 Blood Pressure Mean 62 06/15/25 18:15 Blood Pressure Source Monitor 06/15/25 18:15 Blood Pressure Position Semi-Fowlers 06/15/25 18:15 Blood Pressure Location Right Forearm 06/15/25 18:15 Pulse Ox 100 06/15/25 18:15 Oxygen Delivery Method Bi-pap 06/15/25 18:15 Oxygen Flow Rate (L/min) 2 06/15/25 13:15 Fraction of Inspired Oxygen (FIO2) 45 06/15/25 15:30 I&O: I&O Last 24 Hours 06/14/25 06/15/25 06/15/25 23:59 11:59 23:59 Intake Total 3380.45 / 3380.45 Balance 3380.45 / 3380.45 I&O: Total Stay 06/15/25 11:47 thru 06/15/25 19:33 Intake Total 3380.45 Balance 3380.45 Current Meds Ordered / Administered: Current meds ordered / Administered Generic Name Dose Route Start Last Admin Trade Name Freq PRN Reason Stop Dose Admin Acetaminophen 1,000 mg 06/15/25 22:00 Acetaminophen 500 Mg Tablet PO Q8 ALINA Albuterol/Ipratropium 3 ml 06/15/25 18:15 Ipratropium/Albuterol Sulfate 3 Ml Ampul.Neb INHALATION Q4H.RT ALINA Guaifenesin 1,200 mg 06/15/25 22:00 Guaifenesin 1,200 Mg Tablet PO BID ALINA Norepinephrine Bitartrate 8 mg in 250 mls @ 9.375 mls/hr 06/15/25 15:15 06/15/25 16:54 CONT INF 30 mcg/min UD ALINA 56.3 mls/hr Protocol Titration 5 MCG/MIN Phenylephrine HCl 10 mg/ 250 mls @ 15 mls/hr 06/15/25 16:50 06/15/25 18:15 Sodium Chloride CONT INF 50 mcg/min .[id number] ALINA 75 mls/hr Protocol Titration 10 MCG/MIN Piperacillin Sod/Tazobactam 50 mls @ 12.5 mls/hr 06/15/25 22:00 Sod 3.375 gm/ Sodium Chloride IV 06/22/25 22:01 Q8 ALINA Vancomycin IV-PHARMACY TO DOSE 500 mls @ 250 mls/hr 06/15/25 18:15 1 each/ Sodium Chloride IV DAILY PRN RX TO DOSE Protocol Vancomycin HCl 1,750 mg/ 535 mls @ 250 mls/hr 06/15/25 18:45 Sodium Chloride IV 06/15/25 20:53 X1 ONE Sodium Chloride 250 mls @ 15 mls/hr 06/15/25 18:18 IV .[id number] PRN Saline Flush Sodium Chloride 250 mls @ 15 mls/hr 06/15/25 18:18 IV .[id number] PRN Additional IVPB Infusion Methylprednisolone Sodium Succinate 40 mg 06/15/25 16:55 Methylprednisolone Sod Succ 40 Mg/Ml Vial IV Q8 ALINA Nitroglycerin 1 inch 06/15/25 18:15 Nitroglycerin Oint 1 Inch Packet TD Q6H PRN chest pain Protocol Ondansetron HCl 4 mg 06/15/25 18:46 Ondansetron 4 Mg/2 Ml Vial IV Q6H PRN PRN NAUSEA Oxycodone HCl 2.5 - 5 mg 06/15/25 18:15 Oxycodone 5 Mg Tablet PO Q4H PRN PRN Pain Score 4-10 Pantoprazole Sodium 40 mg 06/16/25 10:00 Pantoprazole Sodium 40 Mg Tablet PO DAILY ALINA Promethazine HCl 12.5 mg 06/15/25 18:55 06/15/25 19:11 Promethazine 25 Mg/Ml Syringe IM 12.5 mg Q6H PRN PRN Administration NAUSEA/VOMITING Senna/Docusate Sodium 2 tablet 06/15/25 22:00 Senna/Docusate Sodium 1 Tablet PO BID ALINA Sodium Chloride 10 - 40 ml 06/15/25 18:18 0.9% Saline Lock 10 Ml Syringe IV UD PRN Multilumen/Strong Flush Sodium Chloride 10 - 40 ml 06/15/25 18:18 0.9 % Nacl (Sterile) Posiflush 10 Ml IV UD PRN Port access or dressing change Lab / Micro Data 06/15/25 12:02 06/15/25 12:02 Labs: Laboratory Results - last 24 hr 06/15/25 12:02: WBC 16.8 H, RBC 3.54 L, Hgb 10.3 L, Hct 32.9 L, MCV 92.9, MCH 29.1, MCHC 31.3 L, RDW Std Deviation 48.7 H, RDW Coeff of Airam 14.3, Plt Count 377, MPV 11.2, Immature Gran % (Auto) 2.100 H, Neut % (Auto) 81.9 H, Lymph % (Auto) 6.3 L, [place] % (Auto) 7.6, Eos % (Auto) 1.3, Baso % (Auto) 0.8, Absolute Neuts (auto) 13.7 H, Absolute Lymphs (auto) 1.06, Nucleated RBC % 0.1, Sodium 137, Potassium 4.9, Chloride 99, Carbon Dioxide 24.2, Anion Gap 14, BUN 31 H, Creatinine 2.08 H, Estim Creat Clear Calc 28.44 L, Est GFR (MDRD) Non-Af 25 L, BUN/Creatinine Ratio 15.0, Glucose 183 H, Calcium 9.5, Total Bilirubin 0.44, Direct Bilirubin 0.14, AST 39 H, ALT 52 H, Alkaline Phosphatase 59, Troponin T High Sens 48 H, NT pro BNP II 1200 H, Total Protein 6.5, Albumin 2.8 L, Globulin 3.6 06/15/25 13:17: Lactic Acid 2.3 H* 06/15/25 13:20: PT 27.7 H, INR 2.5, APTT 32.9 06/15/25 14:34: Urine Color Yellow, Urine Clarity Clear, Urine pH 6.0, Ur Specific [place] 1.020, Urine Protein 15 H, Urine Glucose (UA) 1000 H, Urine Ketones Negative, Urine Occult Blood Negative, Urine Nitrite Negative, Urine Bilirubin Negative, Urine Urobilinogen Normal, Ur Leukocyte Esterase Negative, Urine RBC 0-5 SEEN, Urine WBC 0-5 SEEN, Ur Squamous Epith Cells 0-5 SEEN, Urine Bacteria 0 SEEN, Hyaline Casts 10-25 SEEN, Urine Mucus 0 SEEN 06/15/25 14:52: Troponin T Hi Sens 2 Hr 45 H 06/15/25 18:15: Lactic Acid 3.4 H* Micro: Microbiology 06/15/25 12:20 Mucosa - Nose SARS-CoV-2, Influenza & RSV (PCR) - Final ABG Data ABG results: ABG 06/15/25 06/15/25 15:53 16:35 Specimen Type MAIA ART Sample Site Not entered R Radial pH 7.29 L Bicarbonate Actual 24.8 Total CO2 26 Base Excess -2 O2 Saturation 97 ABG pCO2 51.5 H ABG pO2 97 VBG pH 7.31 L VBG pO2 27 VBG HCO3 29 H VBG Total CO2 31 VBG O2 Sat (Calc) 44 L VBG Base Excess 3 POC Mix VBG pCO2 Pt Tmp 56.9 H O2 Delivery Device Not entered BiPAP Vent Mode AC Rhythm Strip Rhythm Strip: Sinus Rhythm Rate: 76 Ectopy: None Imaging Radiology Impression Chest X-Ray 06/15/25 12:30 IMPRESSION: Opacification left mid and lower thorax. Consider pneumonia. Central congestion is present. Reading Location: [id number] Chest X-Ray 06/15/25 16:20 IMPRESSION: 1. Right IJ central line tip appears to terminate in the right atrium. 2. Markedly enlarged cardiac silhouette. A pericardial effusion should be considered. 3. No significant change in left pleural effusion and bilateral lung opacities. Reading Location: [id number] Assessment and Plan . Assessment and plan: Critical Care Time: The entirety of this encounter was done via Telemedicine
--- NOTE | 2025-06-15 20:00 | PCM.HOSP.N ---
Hospitalist Note CODE BLUE NOTE: Discussed patient's case with cargo trimmer following his evaluation following patient admission and transition to the ICU and he recommended intubation preemptively as he was concerned that the patient may fatigue at a later time. Discussed this with patient family and they noted that she had been intubated in the past as well and were amenable to this intervention needed given concerns for her potential respiratory decline. Patient being positioned in the bed when she had sudden onset bradycardia down into the 30s with atropine immediately requested by staff however prior to this even being given she became asystolic and CPR was initiated at 2014. Attempts were made to intubate patient under GlideScope with 2 different blades; however, despite thorough suctioning and repeat assessments with respiratory directed PAP therapy in between her cords were not visible at all. Patient was clamped down therefore patient was administered succinylcholine 150 mg however this was the only medication administered. Given airway difficulties immediately evident, stat immediate assistance by anesthesiology who also evaluated patient and had similar difficulties then requesting also assistance of ED physician who also presented to assist with airway. While these efforts were being undertaken patient chest compressions were continued with appropriately directed breaks during pulse checks during which the entire time patient remained asystolic. Patient was administered also 2 A of bicarb. Patient was administered 10 rounds of epinephrine. Family and healthcare staff rediscussed patient's status and they requested that all efforts be discontinued which were respected and code was stopped at 2040 per family request. Procedures Hospitalists Procedures: [id number] Critical Care 1st Hr
--- NOTE | 2025-06-15 21:52 | CHAPLAIN ---
Type of Pastoral Visit ___ Initial Visit ___ Follow-up Visit _x__ On-call Visit ___ General Patient Visit ___ Spiritual Assessment ___ Family Conference _x__ Bereavement ___ Rapid Response ___ Code Blue ___ Other (describe below) Pastoral Care Referral From ___ Patient _x__ Family _x__ Nurse ___ Physician ___ Licensing Representative ___ Bell Attendant ___ Other (describe below) Sacrament/Intervention _x__ Active listening ___ Anointing ___ Latter-Day _x__ Bereavement ___ Communion _x__ Isatu exploration ___ _x__ Life review _x__ Prayer ___ Reconciliation ___ Sacrament of Sick _x__ Supportive presence ___ Wedding ___ Other (describe below) Pastoral Comments Hoop Maker Machine visit to a in ICU by request of the family; patient had been seen before and had received spiritual care support; family expressed that patient would have wanted prayer and scripture at her ; several family members were at the bedside; time given to listen to family stories and memories of their mother and grandmother; presence given as needed until family decided that they were ready to leave;
--- NOTE | 2025-06-15 23:28 | NURSING ---
Radiologist called floor with critical result. Informed radiologist this patient's time of was 2040.
--- NOTE | 2025-06-16 07:36 | EXP.PCM_ITS ---
Preliminary Cause of
--- NOTE | 2025-06-16 07:36 | PCM.DEATH ---
Preliminary Cause of Preliminary Cause of Preliminary Cause of : Acute on chronic combined respiratory failure, exact etiology unclear Hypotension/shock possible cardiogenic Possible cardiac tamponade/COPD exacerbation/suspected pneumonia Date of Admission: 06/15/25 Date of : 06/15/25 Principle Diagnosis Problem List: Active and Suspected Problems (Updated 06/15/25 @ 16:[address] Kendall Dumont MD) Acute hypoxemic respiratory failure (Acute) Septic shock (Acute) Hypotension (Acute) Encounter for central line placement (Acute) History of atrial fibrillation (Acute) Anemia (Acute) Chronic anticoagulation (Acute) Acute kidney injury (Acute) CHF (congestive heart failure) (Acute) Acute hypotension (Acute) Pneumonia (Acute) Hospital Course This 74-year-old female being admitted for acute on chronic shortness of breath generalized weakness and hypotension. 1. Acute on chronic combined respiratory failure, exact etiology unclear at the time of admission: Patient is being admitted in ICU. Chest x-ray, portable suboptimal quality. Shows opacification of left lingular and lower lobe with central congestion. Repeat chest x-ray also reviewed and similar. Biometrics Instructor consulted. ABG 7.2 on BiPAP. Repeat ABG ordered. Treat underlying disorder 06/15: As the left lower lobe/lingula was not clear therefore CT chest without contrast was ordered. No repeat ABG was done. Biometrics Instructor recommended intubation therefore nighttime hospitalist ordered discussion with the family initiated the procedure but soon patient went into bradycardia after positioning and atropine was ordered but patient became asystolic and CPR was initiated at 2015 hrs. Attempts were made to intubate with Glydo scope and 2 different bleeds despite thorough suction, cords were not visible. Nighttime hospitalist note in the chart. Anesthesiologist was called for help in the meantime CPR was continued and ACLS and BLS protocol was followed. At that time patient's family member requested DNR CC and code was stopped at 2041 hrs. Retrospectively, chest CT scan which was ordered at the time of admission was reported at 2351 hrs. after patient . It was reported moderate to large pericardial effusion measuring up to 2.3 cm thickness. Small to moderate left and trace right pleural effusion. Scattered consolidation and ground glass opacities throughout both lungs, left greater than right combination of edema atelectasis possible infection. Therefore a respiratory status patient might have cardiac tamponade with combination of atelectasis, effusion and possible infection clinically infection less likely. 2. Suspected left lower lobe pneumonia: Pneumonia workup ordered including blood culture, respiratory panel and sputum culture. Triple PCR for SARS-CoV-2, flu and RSV are negative. Started empirically on IV vancomycin and Zosyn. Urine culture prelim shows mixed gram-positive organism possible contamination. 3. Most likely COPD exacerbation: Patient is being managed on scheduled bronchodilator, IV Solu-Medrol, Mucinex, incentive spirometry and Pep. 4. Hypotension, shock exact etiology unclear possible distributive/obstructive, cardiogenic less likely septic but retrospectively seems cardiogenic from cardiac tamponade/moderate to large pericardial effusion: Patient has elevated creatinine 2.08 with estimated creatinine clearance 28 mL/min. IV contrast is contrary to therefore bilateral venous duplex ordered to rule out DVT. Perfusion scan ordered for tomorrow AM. Empirically enoxaparin 1 mg/kg body weight, 1 dose ordered. She has history of DVT and A-fib and is on Eliquis at home. IV norepinephrine. Lactic acid elevated. 06/16: Lactic acid 3.4 but seems more from decreased perfusion/hypotension from cardiogenic shock from cardiac tamponade. 5. Acute on chronic HFpEF: Last echo in June 2018 shows EF 55%, no RWMA, normal mitral valve. Tricuspid and aortic valve not visualized. Normal RV size and systolic function. Chest x-ray suggestive of pulmonary edema and NT proBNP elevated. Troponins 48 and 45. Decreasing trend. Mild troponin elevation nonischemic in nature, due to acute myocardial injury from increased cardiac demand 6. Paroxysmal A-fib: As per ER physician, patient on Eliquis was not showing up on home medication list. Empirically started on enoxaparin 1 mg per therapeutic dose until PE/DVT ruled out. After that patient can be on Eliquis 5 mg p.o. twice daily. Currently NSR, heart rate controlled. 7. Mildly elevated transaminases probably due to CHF: AST 39 ALT 52. 8. DVT prophylaxis: History of DVT. On therapeutic dose of Lovenox. Visit Charges Inpatient E&M: 39460 Disch Hosp >30min
== END 2025-06-15 20:41 | DRG 189 ==
LOC: ED 15:13 → ICU 16:07
PROVIDERS: Admitting Provider Internal Medicine; Emergency Provider Emergency Medicine; PCP Student in an Organized Health Care Education/Training Program; Visit Provider Internal Medicine
DX: J96.21 Acute and chronic respiratory failure with hypoxia (principal); I50.33 Acute on chronic diastolic (congestive) heart failure; J18.9 Pneumonia, unspecified organism; I31.39 Other pericardial effusion (noninflammatory); I47.20 Ventricular tachycardia, unspecified; E87.29 Other acidosis; I5A Non-ischemic myocardial injury (non-traumatic); I31.4 Cardiac tamponade; Z68.43 Body mass index [BMI] 50.0-59.9, adult; J44.1 Chronic obstructive pulmonary disease with (acute) exacerbation; N17.9 Acute kidney failure, unspecified; R57.0 Cardiogenic shock; Z66 Do not resuscitate; D64.9 Anemia, unspecified; I70.0 Atherosclerosis of aorta; N18.9 Chronic kidney disease, unspecified; E66.01 Morbid (severe) obesity due to excess calories; J96.22 Acute and chronic respiratory failure with hypercapnia; I48.0 Paroxysmal atrial fibrillation; G47.33 Obstructive sleep apnea (adult) (pediatric); F17.200 Nicotine dependence, unspecified, uncomplicated; N28.1 Cyst of kidney, acquired; Z79.01 Long term (current) use of anticoagulants; N26.1 Atrophy of kidney (terminal); Z86.718 Personal history of other venous thrombosis and embolism; Z99.89 Dependence on other enabling machines and devices; Z99.81 Dependence on supplemental oxygen
CPT/HCPCS: 36600; 51702; 71045; 71046; 71250; 80048; 80076; 81001; 82803; 83605; 83880; 84484; 85025; 85610; 85730; 87040; 87077; 87086; 87088; 87186; 87631; 92950; 93005; 94002; 94640; 99285; A4216; J0696